=== PATIENT | female | born 1970 | race African-American/Black ===

== ENCOUNTER 2017-02-03 08:13 | Inpatient (IN) | payer SELFPAY ==
[2017-02-03 08:38] LABS: #Basophils 0.1 thou/uL (0.0-0.2); #Lymphocytes 1.8 thou/uL (1.20-3.40); #Monocytes 0.5 thou/uL (0.11-0.59); #Neutrophils 2.3 thou/uL (1.40-6.50); %Basophils 1.3 % (0.0-1.0); %Eosinophils 0.9 % (0.0-10.0); %Lymphocytes 37.8 % (21.0-51.0); %Monocytes 10.4 % (0.0-10.0); Hematocrit 40.5 % (36.0-47.0); Mean Platelet Volume 6.5 fL (7.4-10.4); Red Blood Cell (RBC) Count 4.07 mill/uL (4.20-5.40); White Blood Cell (WBC) Count 4.6 thou/uL (4.8-10.8)
[2017-02-03 09:01] LABS: ALT (SGPT) 12 U/L (8-55); AST (SGOT) 14 U/L (5-34); Alkaline Phosphatase 56 U/L (40-150); Anion Gap 14 mmol/L (10-20); BUN (Urea Nitrogen) 7 mg/dL (7.0-18.7); Bilirubin, Total 0.4 mg/dL (0.2-1.2); CK (CPK) 204 U/L (29-168); Calc. Creatinine Clearance 0 mL/min (70-130); Calcium 9.3 mg/dL (7.8-10.44); Carbon Dioxide 23 mmol/L (22-29); Chloride 105 mmol/L (98-107); Estimated GFR-MDRD Greater than 90; Globulin 3.3 g/dL (2.4-3.5); Lipase 5 U/L (8-78); Protein, Total 8.1 g/dL (6.0-8.3)
[2017-02-03] MEDS ORDERED: Fentanyl 100 MCG/2 ML VIAL ONE ×2 (09:22→11:23)
[2017-02-03] MEDS ORDERED: Ketorolac Tromethamine 30 MG/ML VIAL ONE (10:20)
[2017-02-03] MEDS ORDERED: Dexamethasone 10 MG/ML VIAL ONE (10:44)
--- NOTE | 2017-02-03 10:53 | CT ---
CT BRAIN: Date: 02/03/17 HISTORY: Possible stroke. TECHNIQUE: Noncontrast enhanced CT images of brain obtained from the base of the skull to the vertex. Brain and bone windows are obtained. FINDINGS: Comparison made to previous exam from 09/24/15. Noncontrast enhanced CT images of the brain demonstrate the brain to be unremarkable. No acute intrac ranial abnormality seen. There appears to have been an old left basal ganglion area of mild hypodensi ty compatible with likely area of old left basal ganglion stroke and subinsular stroke. These are, ho wever, old. No acute intracranial abnormality seen. No evidence of hemorrhages seen. 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 No acute intracranial abnor malities seen. Findings called to Dr. Valera at 0848 hours on 02/03/17. CODE CR. POS: [facility]
[2017-02-03] MEDS ORDERED: Acetaminophen 650 MG Suppository PR PRN (10:59)
[2017-02-03] MEDS ORDERED: Bisacodyl 5 MG TAB PO PRN (10:59)
[2017-02-03] MEDS ORDERED: Nitroglycerin 0.4 MG TAB (25 Tab Bottle) PO PRN (10:59)
--- NOTE | 2017-02-03 10:59 | RAD ---
AP VIEW CHEST: Date: 02/03/17 HISTORY: Chest pain. FINDINGS: Comparison made to previous exam from 12/18/16. AP view chest demonstrates the lungs to be well aerated. No evidence of active intrathoracic disease seen. No evidence of effusions, pneumonia, or pneumothorax seen. IMPRESSION: Unremarkable AP view chest. POS: [facility]
[2017-02-03] MEDS ORDERED: Metoclopramide HCl 10 MG/2 ML VIAL ONE (11:09)
[2017-02-03] MEDS ORDERED: Topiramate 100 MG TAB PO SCH (11:15)
[2017-02-03] MEDS ORDERED: Nitroglycerin 2% Ointment 1 INCH/1 GM Packet ONE (11:19)
[2017-02-03] MEDS ORDERED: hydrALAZINE 20 MG/ML VIAL SLOW IVP PRN (11:25)
[2017-02-03 11:31] LABS: Acetaminophen Less than 6.0 mcg/mL (10.0-30.0); Salicylate Less than 8.0 mg/dL (15.0-30.0)
--- NOTE | 2017-02-03 11:53 | CT ---
CT AORTIC DISSECTION: Date: 02/03/17 HISTORY: 46-year-old with history of chest pain for 30 minutes. TECHNIQUE: Contrast enhanced CTA of the chest is performed. 2D and 3D reconstructed images performed on an [employer] 3D workstation. FINDINGS: CTA chest and abdomen demonstrates the thoracic aorta to be unremarkable. No evidence of mediastinal masses or lesions seen. The pulmonary arteries are unremarkable. No definite evidence of pulmonary parenchymal masses or lesions seen. No evidence of abdominal aortic aneurysms or dissections seen. The SMA, celiac, ZENON, and renal arteri es are all patent. The liver, spleen, gallbladder, pancreas, adrenal glands, and kidneys are unremarkable. IMPRESSION: Unremarkable CTA aorta. POS: [facility]
--- NOTE | 2017-02-03 11:59 | HP ---
PRIMARY CARE PROVIDER: Christopher in [facility] CHIEF COMPLAINT: Headache, chest pain. HISTORY OF PRESENT ILLNESS: Ms. Rodriguez is a pleasant 46-year-old lady who was seen at [facility] on 02/03/2017. She reports that she woke up today morning with right-sided weakness, headache and left-sided chest p ain. She reports that the headache and is worse than the headache she has had in the past. In the p ast, she was diagnosed with migraine headaches. She reports that today's headache is bifrontal, dull , 10/10 at its worst, nonradiating. This was accompanied by right upper and lower extremity weakness . She also had left-sided chest pain, sharp, radiating to the neck, 10/10 at its worst. No known ag gravating or relieving factors, not accompanied by shortness of breath. REVIEW OF SYSTEMS: She denies any cough, fevers or chills. She denies any abdominal pain. The following complete review of systems was negative, unless otherwise mentioned in the HPI or below : Constitutional: Weight loss or gain, sense of well-being, ability to conduct usual activities, ex ercise tolerance. Skin/Breast: Rash, itching, changes in hair growth or loss, nail changes, breast lumps, tenderness, swelling, nipple discharge. Eyes: Vision, double vision, tearing, blind spots, p ain. ENT/Mouth: Headaches (location, time of onset, duration, precipitating factors), vertigo, ligh theadedness, injury. Vision, double vision, tearing, blind spots, pain, nose bleeding, colds, obstru ction, discharge, dental difficulties, gingival bleeding, dentures, neck stiffness, pain, tenderness, masses in thyroid or other areas Cardiovascular: Precordial pain, substernal distress, palpitations , syncope, dyspnea on exertion, orthopnea, nocturnal paroxysmal dyspnea, edema, cyanosis, hypertensio n, heart murmurs, varicosities, phlebitis, claudication. Respiratory: Pain, shortness of breath, wh eezing, stridor, cough, hemoptysis, fever or night sweats. Gastrointestinal: Poor appetite, dysphag ia, indigestion, abdominal pain, heartburn, eructation, nausea, vomiting, hematemesis, jaundice, cons tipation, or diarrhea, abnormal stools (allan-colored, tarry, bloody, greasy, foul smelling), flatulen ce, hemorrhoids, recent changes in bowel habits. Genitourinary: Urgency, frequency, dysuria, noctur ia, hematuria, polyuria, oliguria, unusual (or change in) color of urine, stones, hesitancy, change i n size of stream, dribbling, acute retention or incontinence, libido, potency. Musculoskeletal: Collette n, swelling, redness or heat of muscles or joints, limitation, of motion, muscular weakness, atrophy, cramps. Neurologic/Psychiatric: Convulsions, paralyses, tremor, incoordination, paresthesias, diff iculties with memory of speech, sensory or motor disturbances, or muscular coordination (ataxia, trem or), emotional problems, anxiety, depression, previous psychiatric care, unusual perceptions, halluci nations. Allergy/Immunologic: Skin rash, anemia, bleeding tendency, polydipsia, polyuria, intoleran ce to heat or cold. PAST MEDICAL HISTORY: Significant for hypertension, diverticulitis, TIA x2, bulging neck disk and me ningioma. PAST SURGICAL HISTORY: Significant for colon resection and diverticulitis. SOCIAL HISTORY: The patient reports that she smokes 2-3 cigarettes a day. She denies alcohol use or recreational drug use. FAMILY HISTORY: He denies any family history of migraine headaches. ALLERGIES: No known drug allergies. CURRENT MEDICATIONS: Include Lisinopril 5 mg daily. PHYSICAL EXAMINATION: GENERAL: Ms. Rodriguez is awake and alert, not in acute distress. VITAL SIGNS: Blood pressure is 129/88, pulse is 77. She is breathing at rate of 16, and saturating 99% on room air. She is afebrile. EYES: No scleral icterus. No conjunctival pallor. ENT: Moist mucosal membranes, no oropharyngeal erythema or exudates. NECK: Supple, nontender, normal range of movement, trachea is midline. RESPIRATORY: Accessory muscles of breathing are not active. Chest wall movements are symmetric bila terally. LUNGS: Clear to auscultation without wheeze, rhonchi or crepitations. CARDIOVASCULAR: S1 and S2 are heard, regular. LUNGS: Peripheral pulses palpable. No carotid bruit, no pericardial rub. ABDOMEN: Soft, nontender, bowel sounds heard, no hepatomegaly, no splenomegaly. NEUROLOGIC: Cranial nerves II-XII are intact. Power is 4/5 in the right upper extremity and 3/5 in the right lower extremity. Power is 5/5 in the left upper and lower extremities. Deep tendon reflex es are 2+. Plantar reflexes are downgoing bilaterally. MUSCULOSKELETAL: Power in the 4 extremities as described above. There is no reproducible tenderness over the chest wall. SKIN: No rashes or subcutaneous nodules. LYMPHATIC: No cervical lymphadenopathy. PSYCHIATRIC: The patient appears anxious, oriented to person, place, and time. LABORATORY DATA: Ms. Rodriguez's labs and investigations were reviewed. I reviewed her electrocardiogra m, which shows normal sinus rhythm, no ST changes to suggest an acute coronary syndrome. I also revi ewed her chest x-ray, which does not show any pulmonary infiltrates. She also had a noncontrast CT s can of the brain as well as a CT dissection protocol. The emergency room physician informs me that t hese are normal. Laboratory investigation shows leukopenia with 4600 white cells, normal hemoglobin, normal platelet count, unremarkable. Comprehensive metabolic profile, mildly elevated CK of 204, no rmal troponin I and negative serum test. ASSESSMENT AND PLAN: Ms. Rodriguez is a pleasant 46-year-old lady who was seen at [facility] on 02/03/2017. Her problem list includes: 1. Chest pain: The etiology is unclear. She does not have any EKG changes and her first troponin i s normal. However, she does have ongoing severe chest pain. The differential diagnoses includes uns table angina and esophageal spasm. I have advised the emergency room physician to provide her with s ome nitrates to see the effect. I will also start her on Lovenox and aspirin. I will also start her on Cardizem for possible esophageal spasm. Cardiology Service will be consulted. A 2D echocardiogr am is also being ordered. 2. Headache: She has a history of migraines. I will provide her with Topamax. 3. Right-sided weakness. This is improving. Most likely migraine variant. However, will check MRI of the brain to rule out an acute stroke. 4. Hypertension: Monitor vital signs, titrate antihypertensives as needed. 5. Rhabdomyolysis: Mild, we will provide intravenous hydration and recheck. 6. Leukopenia: Recheck white count. I note that patient had a normal white count in 12/2016. Many thanks for allowing me to participate in your patient's care. Please feel free to contact me wi th any questions or concerns. LEVEL OF RISK: High. LEVEL OF COMPLEXITY: High.
[2017-02-03] MEDS ORDERED: Diltiazem HCl SR 60 mg Capsule PO SCH (12:00)
[2017-02-03] MEDS ORDERED: Enoxaparin Sodium 80 MG/0.8 ML SYRINGE SC SCH (12:00)
[2017-02-03] MEDS ORDERED: ISOVUE-370 76%-LOCM 1 ML ONE (13:47)
[2017-02-03 15:12] VITALS: BMI 32.9
[2017-02-03] MEDS: Sodium Chloride 0.9% 1,000 ML IV SCH (16:12)
[2017-02-03] MEDS: Nicotine 14 MG PATCH TD SCH (16:13)
[2017-02-03] MEDS: Morphine 4 MG/ML VIAL SLOW IVP PRN (16:19)
[2017-02-03] MEDS: Topiramate 25 MG TAB PO SCH (21:34)
[2017-02-03] MEDS: Diltiazem HCl SR 60 mg Capsule PO SCH (21:34)
[2017-02-03] MEDS: Enoxaparin Sodium 80 MG/0.8 ML SYRINGE SC SCH (21:35)
[2017-02-04] MEDS: Sodium Chloride 0.9% 1,000 ML IV SCH (03:04)
[2017-02-04 05:36] LABS: #Lymphocytes 1.4 thou/uL (1.20-3.40); #Monocytes 0.6 thou/uL (0.11-0.59); #Neutrophils 5.8 thou/uL (1.40-6.50); %Eosinophils 0.1 % (0.0-10.0); %Lymphocytes 17.8 % (21.0-51.0); %Monocytes 7.7 % (0.0-10.0); Hematocrit 35.4 % (36.0-47.0); Mean Platelet Volume 7.3 fL (7.4-10.4); Red Blood Cell (RBC) Count 3.57 mill/uL (4.20-5.40); White Blood Cell (WBC) Count 7.8 thou/uL (4.8-10.8)
[2017-02-04 05:52] LABS: Anion Gap 10 mmol/L (10-20); BUN (Urea Nitrogen) 11 mg/dL (7.0-18.7); CK (CPK) 137 U/L (29-168); Calc. Creatinine Clearance 126 mL/min (70-130); Calcium 8.6 mg/dL (7.8-10.44); Carbon Dioxide 23 mmol/L (22-29); Chloride 109 mmol/L (98-107); Cholesterol 100 mg/dl (< 200 Desired); Estimated GFR-MDRD Greater than 90; LDL Cholesterol, Calculated 24 mg/dL
[2017-02-04] MEDS: Aspirin 325 MG TAB PO SCH (08:49)
[2017-02-04] MEDS: Diltiazem HCl SR 60 mg Capsule PO SCH ×2 (08:49→20:12)
[2017-02-04] MEDS: Topiramate 25 MG TAB PO SCH ×2 (08:49→20:12)
[2017-02-04] MEDS: Enoxaparin Sodium 80 MG/0.8 ML SYRINGE SC SCH (08:49)
[2017-02-04] MEDS ORDERED: Enoxaparin Sodium 40 MG/0.4 ML SYRINGE SC SCH (09:00)
[2017-02-04] MEDS: Morphine 4 MG/ML VIAL SLOW IVP PRN (11:38)
[2017-02-04] MEDS: Nicotine 14 MG PATCH TD SCH (11:38)
--- NOTE | 2017-02-04 11:57 | PDOC.PN ---
- Subjective Encounter Start Date: 02/04/17 Encounter Start Time: 11:55 Subjective: sharp left chest pain, lasts seconds, comes and goes. weak in R leg - Objective MAR Reviewed: Yes Vital Signs & Weight: Vital Signs (12 hours) Temp Pulse Resp BP BP BP Pulse Ox 02/04/17 11:30 98.6 F 82 18 138/92 H 99 02/04/17 07:45 99.4 F 88 16 125/73 98 02/04/17 03:54 98.2 F 84 18 116/60 98 02/04/17 00:00 98.6 F 80 18 126/76 98 Weight Weight 183 lb 3.2 oz I&O: 02/03/17 02/04/17 02/05/17 06:59 06:59 06:59 Intake Total 2500 Output Total 1170 Balance 1330 Result Diagrams: 02/04/17 05:05 02/04/17 05:05 Phys Exam - Physical Examination Constitutional: NAD Neck: no JVD Respiratory: clear to auscultation bilateral Cardiovascular: RRR, no significant murmur Gastrointestinal: soft, non-tender, positive bowel sounds Musculoskeletal: no edema gives way on strength testing R leg, no focal reflex change Dx/Plan (1) Weakness of right lower extremity Code(s): R29.898 - OTH SYMPTOMS AND SIGNS INVOLVING THE MUSCULOSKELETAL SYSTEM Status: Acute (2) Chest pain Code(s): R07.9 - CHEST PAIN, UNSPECIFIED Status: Acute Qualifiers: Chest pain type: pleurodynia Qualified Code(s): R07.81 - Pleurodynia (3) Headache Code(s): R51 - HEADACHE Status: Acute Qualifiers: Headache type: tension-type (4) Tobacco abuse Code(s): Z72.0 - TOBACCO USE Status: Chronic - Plan gives way on strength testing, MRI pending -: noncardiac chest pain * .
[2017-02-04 12:58] LABS: Troponin I 0.019 ng/mL (< 0.028)
--- NOTE | 2017-02-04 19:32 | CON ---
DATE OF CONSULTATION: 02/04/2017 HISTORY OF PRESENT ILLNESS: Dorothy Rodriguez is a 46-year-old black female who was admitted with right leg weakness and chest discomfort. The discomfort is located in the mid portion of her chest. She developed a very severe sharp pain , which is definitely pleuritic in nature, last approximately 5 seconds and resolved. This then will occur 4 or 5 hours later. Even now if she takes a deep breath in, she will have the discomfort. She denies any diaphoresis, nausea, vomiting or shortness of breath associated with this. PAST MEDICAL HISTORY: Hypertension, diverticulitis, history of TIAs, cervical herniated disk and meningioma. OPERATIONS: Colon resection and diverticulitis. MEDICATIONS: Lisinopril, unknown dose daily. ALLERGIES: None. SOCIAL HISTORY: She smokes 2-3 cigarettes per day. She does not use alcohol. FAMILY HISTORY: Negative for coronary artery disease. REVIEW OF SYSTEMS: Twelve point review of systems otherwise is unremarkable. PHYSICAL EXAMINATION: VITAL SIGNS: 138/92, pulse of 82. HEENT: PERRL. NECK: Supple. CHEST: Clear. CARDIAC: S1 and S2 are normal, without any S3, S4, murmurs or rubs. Carotid upstrokes normal, without bruits. ABDOMEN: Normal bowel sounds, without tenderness or organomegaly. EXTREMITIES: Revealed no clubbing, cyanosis or edema. NEUROLOGIC: Shows mild right leg weakness. SKIN: Warm and dry. Musculoskeletal: No palpable chest wall tenderness. LABORATORY: EKG reveals normal sinus rhythm with septal infarction. Hemoglobin 11.6, hematocrit 35.4, white count 7800, platelets 251,000. Sodium 138, potassium 3.9, chloride 109, carbon dioxide 23, BUN 11, creatinine 0.75, cholesterol 100, triglycerides 21, HDL 72, LDL 24. Cardiac enzymes are negative x2. CT aortic dissection revealed no evidence of aortic aneurysm or dissection. Brain CT revealed an old left basal ganglia and subinsular cortex injury. Echocardiogram revealed ejection fraction of 50%-55% with moderate mitral regurgitation, mild to moderate tricuspid regurgitation, and mild pulmonic regurgitation. IMPRESSION: 1. Atypical chest discomfort, which historically sounds more chest wall in nature. 2. Left basal ganglia and cerebrovascular accident with right leg weakness. 3. Hypertension. 4. Obesity. 5. Smoker. PLAN: Patient does have findings of a septal infarction on her EKG. She will undergo adenosine Cardiolite testing for further evaluation. MTDD
[2017-02-05] MEDS: Acetaminophen 325 MG TAB PO PRN ×2 (05:43→13:37)
[2017-02-05] MEDS ORDERED: Lisinopril 5 MG TAB PO SCH (09:00)
--- NOTE | 2017-02-05 11:37 | NM ---
CARDIAC SPECT WITH EJECTION FRACTION AND WALL MOTION: Date: 02/05/17 HISTORY: 46-year-old female with chest pain. TECHNIQUE: Adenosine sestamibi study is performed. Patient was injected with 30.1 mCi technetium-99m sestamibi i ntravenously for stress images and patient was injected with 9.0 mCi of technetium-99m sestamibi intr avenously for resting images. FINDINGS: Multiple SPECT images in the short axis, vertical long axis, and horizontal long axis demonstrate no scan evidence for infarct or ischemia. TID: 1.08 LHR: 0.32 EDV: 85 mL EF: 60% MYOCARDIAL PERFUSION WALL MOTION: Wall motion is normal. IMPRESSION: Normal cardiac SPECT with ejection fraction and wall motion. POS: [facility]
[2017-02-05 12:09] LABS: Hematocrit 38.7 % (36.0-47.0); Mean Platelet Volume 6.8 fL (7.4-10.4); Red Blood Cell (RBC) Count 3.88 mill/uL (4.20-5.40); White Blood Cell (WBC) Count 5.3 thou/uL (4.8-10.8)
[2017-02-05] MEDS: Aspirin 325 MG TAB PO SCH (12:17)
[2017-02-05] MEDS: Diltiazem HCl SR 60 mg Capsule PO SCH (12:18)
[2017-02-05] MEDS: Nicotine 14 MG PATCH TD SCH (12:19)
[2017-02-05 12:25] LABS: Neutrophil 38 % (42-75)
[2017-02-05 12:29] LABS: Anion Gap 9 mmol/L (10-20); BUN (Urea Nitrogen) 9 mg/dL (7.0-18.7); Calc. Creatinine Clearance 113 mL/min (70-130); Calcium 8.9 mg/dL (7.8-10.44); Carbon Dioxide 26 mmol/L (22-29); Chloride 107 mmol/L (98-107); Estimated GFR-MDRD 89
[2017-02-05] MEDS ORDERED: ADENOSINE 60 MG/20 ML VIAL ONE (13:30)
[2017-02-05] MEDS: Topiramate 25 MG TAB PO SCH (13:34)
--- NOTE | 2017-02-05 15:36 | PDOC.EVN ---
Event Note - Event Note Event Note: patient requests DNR status, family at bedside in agreement
[2017-02-05 16:22] VITALS: BP 119/73; TEMP 97.7
--- NOTE | 2017-02-05 19:42 | DIS ---
PRIMARY CARE PROVIDER: Robin White, Dr. Barrios. DATE OF ADMISSION: 02/03/2017 DATE OF DISCHARGE: 02/05/2017 DISCHARGE DISPOSITION: Home. FINAL DIAGNOSES: Chest pain, noncardiac; headache; weakness in right leg, factitious; hypertension. DISCHARGE MEDICATIONS: Lisinopril 5 mg a day. ALLERGIES: None. PENDING AT THE TIME OF DISCHARGE: Nothing. CODE STATUS: FULL. HOSPITAL COURSE: The patient presented with left sharp chest pain, complaint of weakness in the righ t leg. Brain CT was unremarkable. CT dissection of the chest is unremarkable. Stress test nuclear medicine unremarkable. LABORATORY DATA: White count 4.6, hemoglobin 10.3, platelet count 298,000. Serial cardiac enzymes n ormal. Comp metabolic profile normal. Toxicology, blood alcohol 24, otherwise unremarkable. On str ength testing, the patient gave way on strength testing of her leg for thoroughness. MRI was ordered which she refused. She was seen in consultation by Dr. Kalin Morales. Nuclear medicine cardiac s tress test was done which reveals no evidence of ischemia. These findings have been related to her. She is being discharged home with follow up with Dr. Uribe.
== END 2017-02-05 19:28 | disposition home or self-care (01) | DRG 313 ==
LOC: ERS 08:13 → ERHOLD 10:39 → 2NO 14:46
PROVIDERS: ADMIT Internal Medicine; ATTEND Internal Medicine
PROC: 4A02XM4 Measurement of Cardiac Total Activity, External Approach (ICD-10-PCS; principal; 2017-02-05)
DX: R07.89 Other chest pain (principal); M62.82 Rhabdomyolysis; I10 Essential (primary) hypertension; F17.210 Nicotine dependence, cigarettes, uncomplicated; M62.81 Muscle weakness (generalized); D72.819 Decreased white blood cell count, unspecified; G44.209 Tension-type headache, unspecified, not intractable; E66.9 Obesity, unspecified; Z68.33 Body mass index [BMI] 33.0-33.9, adult; Z90.49 Acquired absence of other specified parts of digestive tract; Z87.19 Personal history of other diseases of the digestive system; Z86.73 Personal history of transient ischemic attack (TIA), and cerebral infarction without residual deficits
CPT/HCPCS: 36415; 36416; 70450; 71010; 71275; 78452; 80048; 80053; 80061; 80307; 82550; 82553; 83690; 84484; 84703; 85025; 93005; 93017; 93306; 94760; 96361; 96374; 96375; 96376; A9500; J0153; J1100; J1650; J1885; J2270; J2765; J3010

== ENCOUNTER 2017-02-22 08:17 | Inpatient (IN) | payer SELFPAY ==
--- NOTE | 2017-02-22 08:52 | RAD ---
SINGLE VIEW OF CHEST: Date: 02/22/17 COMPARISON: 02/03/17. HISTORY: Cough and right arm pain. Chest pain. FINDINGS: Single view of the chest shows a normal sized cardiomediastinal silhouette. There is no evidence of c onsolidation, mass, or pleural effusion. The bones are unremarkable. IMPRESSION: No evidence of acute cardiopulmonary disease. POS: [facility]
[2017-02-22 08:55] LABS: #Eosinphils 0.1 thou/uL (0.0-0.7); #Lymphocytes 2.4 thou/uL (1.20-3.40); #Monocytes 0.5 thou/uL (0.11-0.59); #Neutrophils 3.4 thou/uL (1.40-6.50); %Basophils 0.6 % (0.0-1.0); %Eosinophils 1.2 % (0.0-10.0); %Lymphocytes 38.2 % (21.0-51.0); %Monocytes 7.3 % (0.0-10.0); %Neutrophils 52.6 % (42.0-75.0); Mean Corpuscular HGB CONC 33.4 g/dL (32.0-36.0); Mean Corpuscular Hemoglobin 32.8 pg (27.0-31.0); Mean Corpuscular Volume 98.2 fl (81.0-99.0); Mean Platelet Volume 6.7 fL (7.4-10.4); Platelet Count 294 thou/uL (130-400); RBC Distribution Width 12.8 % (11.5-14.5); Red Blood Cell (RBC) Count 3.66 mill/uL (4.20-5.40); White Blood Cell (WBC) Count 6.4 thou/uL (4.8-10.8)
[2017-02-22 09:05] LABS: PTT 29.8 SEC (22.9-36.1); Prothrombin Time 13.8 SEC (12.0-14.7)
--- NOTE | 2017-02-22 09:17 | CT ---
CT HEAD WITHOUT CONTRAST: Date: 02/22/17 COMPARISON: 02/03/17. HISTORY: Chest pain with radiation to the right arm, altered mental status, right arm tingling, and right-side d weakness. TECHNIQUE: Serial axial CT imaging at 5 mm intervals from vertex through skull base without contrast. FINDINGS: The imaged paranasal sinuses/mastoid air cells are well aerated. There is no displaced calvarial frac ture. There is no intracranial hemorrhage, midline shift, mass effect, or ventricular enlargement. IMPRESSION: No intracranial hemorrhage. If there is clinical concern for acute infarction, brain MRI advised. Art erial structures could be better assessed via CT angiogram if clinically indicated. Results called to Miguelito Kuhn at 0900 hours on 02/22/17. CODE CR. POS: [facility]
[2017-02-22 09:26] LABS: ALT (SGPT) 14 U/L (8-55); AST (SGOT) 13 U/L (5-34); Albumin 4.3 g/dL (3.5-5.0); Alkaline Phosphatase 52 U/L (40-150); Anion Gap 14 mmol/L (10-20); BUN (Urea Nitrogen) 6 mg/dL (7.0-18.7); Bilirubin, Total 0.4 mg/dL (0.2-1.2); CK (CPK) 223 U/L (29-168); Calc. Creatinine Clearance 0 mL/min (70-130); Calcium 9.1 mg/dL (7.8-10.44); Carbon Dioxide 23 mmol/L (22-29); Chloride 106 mmol/L (98-107); Estimated GFR-MDRD Greater than 90; Glucose 75 mg/dL (70-105); Lipase Less than 4 U/L (8-78); Potassium 3.8 mmol/L (3.5-5.1); Protein, Total 7.3 g/dL (6.0-8.3); Sodium 139 mmol/L (136-145)
[2017-02-22 09:30] LABS: CKMB 2.5 ng/mL (0-6.6); Troponin I Less than 0.010 ng/mL (< 0.028)
[2017-02-22] MEDS ORDERED: Aspirin 325 MG TAB ONE (09:30)
--- NOTE | 2017-02-22 10:30 | CT ---
CT ANGIOGRAM OF THE HEAD CT ANGIOGRAM OF THE NECK CT PERFUSION OF THE HEAD: DATE: 02/22/17. COMPARISON: 05/01/15. HISTORY: Wakeup stroke. TECHNIQUE: Serial axial CT imaging at 1.25 mm intervals obtained from the lung apices through the vertex with IV contrast using a CT angiogram protocol. Coronal and sagittal 3D reformatted imaging obtained. CT perfusion maps of the brain were obtained as well. FINDINGS: CT ANGIOGRAM NECK: The imaged lung apices are unremarkable. The retroantral and the parapharyngeal fat appears clear bilaterally. The parotid and submandibular glands appear within normal limits bilaterally. There is a soft tissue density in the superior mediastinum/prevascular space on axial image 36 measur ing 1 cm suggesting a new mildly enlarged lymph node. Imaged lung apices are unremarkable. No lymphadenopathy is seen in the neck. The thyroid gland, cricoid cartilage, thyroid cartilage, hyoid bone, level of the glottis, preepiglot tic fat, and level of the tonsillar pillars appear grossly unremarkable. Origin of the innominate artery, left common carotid artery, left subclavian artery, bilateral verteb ral arteries, right subclavian artery, and right common carotid artery appear unremarkable. The proximal aspect of the left internal carotid artery is tortuous. There is no hemodynamically sig nificant stenosis on the basis of NASCET criteria involving the internal or common carotid artery on either side. Vertebral arteries are patent and demonstrate normal course and caliber bilaterally. The osseous structures of the neck demonstrate no worrisome lytic or blastic lesions. CT ANGIOGRAM OF THE HEAD: The distal vertebral arteries are patent. The basilar artery and its branches are patent. Patent bi lateral posterior communicating arteries are present. The bilateral posterior cerebral arteries appear unremarkable. There is no hemodynamically significa nt stenosis, vascular occlusion, or saccular aneurysm involving the posterior circulation. The extracranial ICA is within normal limits. The region of the anterior communicating artery and th e distal CAROL branches appear unremarkable. The ICA bifurcation appears within normal limits. The M1 segment appears patent bilaterally. The MCA bifurcation and the distal MCA branches are grossly unr emarkable. No saccular aneurysm, high-grade stenosis, or central vascular occlusion is seen. Osseous structures are unremarkable. CT PERFUSION MAPS: Provided CT perfusion maps include cerebral blood volume, cerebral blood flow, and mean transit time. In the anterior temporal lobe on the left/middle cranial fossa, there is an area of decreased blood flow and blood volume. This is probably artifactual in nature. Small completed infarction in the t emporal lobe on the left cannot be fully excluded. There is no evidence for ischemia. Incidental note is made of an enhancing lesion near the vertex on the left in an extraaxial location, presumably on the basis of meningioma measuring in the 1.8 x 1.9 cm range. IMPRESSION: 1. No central arterial thrombus noted on CT angiogram head. 2. CT angiogram of the neck demonstrates no hemodynamically significant stenosis within the carotid or vertebral system. 3. CT perfusion maps demonstrate a focal area of decreased blood flow and blood volume within the in ferior left temporal lobe which could represent artifact, encephalomalacia, or completed infarction. There is no evidence for ischemia. 4. Incidental note made of a new mildly enlarged superior mediastinal lymph node for which followup CT examination of the chest with IV contrast is advised. 5. Incidentally noted hyperdense extraaxial presumably enhancing lesion near the vertex on the left, most consistent with meningioma. Amarilis Jolley made aware at 9:30 a.m. 02/22/17. CODE CR POS: [facility]
[2017-02-22] MEDS ORDERED: Morphine 4 MG/ML Carpuject ONE (10:54)
[2017-02-22 11:37] LABS: Bilirubin Negative (Negative); Blood, Urine Negative (Negative); Clarity CLEAR (Clear); Glucose, Urine (Dipstick) Negative (Negative); Leukocyte Negative (Negative); Nitrite Negative (Negative); Protein, Urine (Dipstick) Negative (Neg-Trace); Urobilinogen 0.2 mg/dL (0.2-1.0); pH, Urine 7.5 (5.0-9.0)
[2017-02-22 11:40] LABS: Specific Gravity, Urine 1.056 (1.002-1.036)
[2017-02-22 12:03] LABS: Troponin I Less than 0.010 ng/mL (< 0.028)
[2017-02-22] MEDS ORDERED: ISOVUE-370 76%-LOCM 1 ML ONE (12:15)
[2017-02-22] MEDS ORDERED: Ondansetron HCl/PF 4 MG/2 ML Vial IVP PRN (13:37)
[2017-02-22] MEDS ORDERED: Ondansetron ODT 4 MG TAB SL PRN (13:37)
[2017-02-22] MEDS ORDERED: Morphine 4 MG/ML Carpuject SLOW IVP PRN ×4 (13:38→15:13)
[2017-02-22] MEDS: Sodium Chloride 0.9% 1,000 ML IV SCH ×2 (14:01→21:31)
[2017-02-22 14:09] VITALS: BMI 31.4
[2017-02-22] MEDS ORDERED: Senokot 8.6 MG TAB PO PRN (14:48)
[2017-02-22] MEDS ORDERED: Bisacodyl 5 MG TAB PO PRN (14:48)
[2017-02-22] MEDS ORDERED: Lorazepam 2 MG/ML VIAL SLOW IVP PRN (14:54)
[2017-02-22 15:19] LABS: Troponin I Less than 0.010 ng/mL (< 0.028)
--- NOTE | 2017-02-22 15:30 | HP ---
DATE OF ADMISSION: 02/22/2017 CHIEF COMPLAINT: Chest pain. HISTORY OF PRESENT ILLNESS: This is a 47-year-old young -Citizen Of The [place] female with a known history of meningioma and has recurrent admissions for similar right-sided pains with weakness of the right extremity. The patient was in her usual state of health. She woke up this morning with sudden onset of chest pain on the left precordium radiating to the right side of the neck associated with weaknes s of the right lower extremity. The patient had no numbness, but complete weakness of the right side and was persistent even while e was in the ER. The patient had a CT of the head that was negative for any intracranial hemorrhage. Also had a CTA, which did not show any evidence of intracranial hemorrhage or any cerebral artery s tenosis, but it did show a meningioma of 3.1-1.9 cm size and she also had a nonspecific lesion in the mediastinum. The patient was seen on the floor. She was alert and oriented. Did not appear to be in acute distre ss. She was recently admitted to the hospital and had cardiac stress test which was unremarkable and patient was discharged home. According to her, she was never seen by a neurologist. PAST MEDICAL HISTORY: 1. Hypertension. 2. History of diverticulitis. 3. History of TIA. 4. History of bulging neck and bulging disk. PAST SURGICAL HISTORY: History of colon resection and history of diverticulitis. SOCIAL HISTORY: The patient is a nonsmoker. Smokes 2-3 cigarettes a day. There is no history of al cohol, no history of illicit drug use. FAMILY HISTORY: Denies any family history of migraine headaches. ALLERGIES: No known drug allergies. HOME MEDICATION: Patient is on lisinopril 5 mg p.o. daily. REVIEW OF SYSTEMS: All 12 systems are reviewed with the patient thoroughly and found to be negative at this time. The following complete review of systems was negative, unless otherwise mentioned in t he HPI or below: Constitutional: Weight loss or gain, sense of well-being, ability to conduct usual activities, exerc ise tolerance. Skin/Breast: Rash, itching, changes in hair growth or loss, nail changes, breast lumps, tenderness, swelling, nipple discharge. Eyes: Vision, double vision, tearing, blind spots, pain. ENT/Mouth: Headaches (location, time of onset, duration, precipitating factors), vertigo, lightheade dness, injury. Vision, double vision, tearing, blind spots, pain, nose bleeding, colds, obstruction, discharge, dental difficulties, gingival bleeding, dentures, neck stiffness, pain, tenderness, masses in thyroid or other areas Cardiovascular: Precordial pain, substernal distress, palpitations, syncope, dyspnea on exertion, or thopnea, nocturnal paroxysmal dyspnea, edema, cyanosis, hypertension, heart murmurs, varicosities, ph lebitis, claudication. Respiratory: Pain, shortness of breath, wheezing, stridor, cough, hemoptysis, fever or night sweats Gastrointestinal: Poor appetite, dysphagia, indigestion, abdominal pain, heartburn, eructation, naus ea, vomiting, hematemesis, jaundice, constipation, or diarrhea, abnormal stools (allan-colored, tarry, bloody, greasy, foul smelling), flatulence, hemorrhoids, recent changes in bowel habits. Genitourinary: Urgency, frequency, dysuria, nocturia, hematuria, polyuria, oliguria, unusual (or orly nge in) color of urine, stones, hesitancy, change in size of stream, dribbling, acute retention or in continence, libido, potency. Musculoskeletal: Pain, swelling, redness or heat of muscles or joints, limitation, of motion, muscul ar weakness, atrophy, cramps. Neurologic/Psychiatric: Convulsions, paralyses, tremor, incoordination, paraesthesias, difficulties with memory of speech, sensory or motor disturbances, or muscular coordination (ataxia, tremor), emot ional problems, anxiety, depression, previous psychiatric care, unusual perceptions, hallucinations. Allergy/Immunologic: Skin rash, anemia, bleeding tendency, polydipsia, polyuria, intolerance to heat or cold. PHYSICAL EXAMINATION: VITAL SIGNS: Blood pressures are 130/81, heart rate is 91, respirations 20, saturation 98%. GENERAL: The patient is moderately built and moderately nourished, does not appears to be in acute d istress at this time. CARDIOVASCULAR: S1, S2 normal. No murmurs, rubs or gallops. LUNGS: Bilateral air entry was equal. No wheezing, no crackles. ABDOMEN: Soft, nontender, no guarding, no rebound tenderness. Bowel sounds normal. MUSCULOSKELETAL: No calf tenderness. No pedal edema, no joint tenderness, no joint swelling. SKIN: No cyanosis, no erythema, no rash, no pallor. STOPPER GRINDER: Examination was done, II to XII cranial nerves were examined and was negative. Patient had no s ensory or motor abnormalities noted. No gross neurologic deficits. Gait was not tested as the patie nt was in the bed. PSYCHIATRIC: No signs of suicidal ideation, no signs of asael. NECK: No thyromegaly. No lymphadenopathy was noted. LABORATORY DATA: WBC 6.1, hemoglobin 12.0, hematocrit is 35.9, platelets are 294. Sodium 139, potas sium 3.8, chloride 106, bicarbonate 23, BUN 6, creatinine is 0.66. UA was negative for any urinary tract infection. ASSESSMENT AND PLAN: 1. Transient ischemic attack. 2. Acute chest pain. 3. History of meningioma. 4. History of cervical neck disk herniation. 5. History of hypertension. PLAN: 1. Plan is to closely monitor this patient with neuro checks every 4 to 6 hours and we will consult Neurology at this time as the patient did not have chance to visit Neurology and patient has been hav ing recurrent symptoms recurrent symptoms of right lower extremity weakness. 2. The patient has right arm weakness and has twitching clearly visible. Most likely, the patient h as a worsening disk herniation and chest pain could also be related to her disk herniation. We will do MRI of the cervical spine to look for the lesion. 3. MRI of the brain is also pending. We will do MRI of the brain to look for further growth of the meningioma as the patient was complaining of persistent headaches. 4. The patient has a history of hypertension, well controlled. We will continue to monitor at this time. 5. DVT prophylaxis, Lovenox 40 mg subcutaneous daily. I spent 70 minutes on this patient.
[2017-02-22] MEDS: Famotidine/PF 20 mg/2ml Vial SLOW IVP SCH (20:52)
[2017-02-22] MEDS: HYDROcodone/Acetaminophen 5/325 mg Tablet PO PRN (20:52)
[2017-02-22] MEDS ORDERED: Atorvastatin Calcium 40 MG TAB PO SCH (21:00)
--- NOTE | 2017-02-22 22:43 | CON ---
DATE OF CONSULTATION: 02/22/2017 REFERRING PHYSICIAN: Dr. Mac Galeas. REASON FOR CONSULTATION: Right-sided weakness. HISTORY OF PRESENT ILLNESS: Ms. Rodriguez is a pleasant 47-year-old -[place] Citizen female, who has bee n considered for evaluation of right-sided weakness. History is obtained from the patient as well as the patient's medical chart. Apparently, the patient has had multiple admissions over the past 1 ye ar for similar complaints of right-sided weakness. She reports that she has a history of "mini strok e" in 2013, at which time she had right-sided weakness. She was found to have a meningioma at that t tianna. Her symptoms had resolved. She states that over the past one year, she has been having episode s of chest pain on the left side of the chest that comes and goes. This tends to cause her to have a right-sided weakness. She had another episode this morning. She was at home and suddenly started n oticing pain in the left side of her chest. It was nonradiating. She also started noticing increasi ng weakness in her right arm and right leg, which prompted her to present to the [facility]. She denies having any numbness or tingling sensation. She denied having dysarthria or dyspha gaurav. There was no complaint of vision changes, diplopia or ptosis. She notes that her symptoms are now resolving. PAST MEDICAL HISTORY: Significant for hypertension, diverticulitis, history of TIA, history of menin gioma and cervical spondylosis. PAST SURGICAL HISTORY: Significant for colon resection. SOCIAL HISTORY: She denies smoke. She reports of smoking 2-3 cigarettes a day. She denies alcohol use or illicit drug use. FAMILY HISTORY: Noncontributory. CURRENT MEDICATIONS: Please review MAR. ALLERGIES: Include no known drug allergies. REVIEW OF SYSTEMS: As mentioned above in HPI, otherwise negative. PHYSICAL EXAMINATION: VITAL SIGNS: Blood pressure of 122/82, pulse of 89, temperature 98.7, respirations of 20, O2 sats of 98% on room air. GENERAL: Well-developed, well-nourished -[place] Citizen female, in no apparent distress. RESPIRATORY: Clear to auscultation bilaterally. CARDIOVASCULAR: Regular rate and rhythm. NEUROLOGIC: Mental status: The patient is awake, alert, oriented x3. Speech and language: Fluent speech. Cranial nerves: Pupils are 3 mm and reactive. Visual gutierrez are intact. Extraocular muscl es are intact. No nystagmus is noted. Face is symmetric. Tongue and uvula are midline. Motor exam showed normal tone and bulk with 5/5 strength in the left upper and left lower extremity. She has s trength of 4/5 right upper and right lower extremity with giveway weakness and poor effort. Sensory: Sensation is intact and symmetric. Deep tendon reflexes 1-2+ reflexes in both upper and lower extr emities. Babinski: Plantar responses flexion bilaterally. Coordination intact to [id number] r tapping bilaterally. LABORATORY DATA: Reviewed, which included CBC, coag panel, CMP, lipase, CK-MB, CPK and urinalysis, w hich is all essentially normal. IMAGING STUDIES: CT head without contrast was reviewed which showed no acute intracranial abnormalit y. CT angiogram of the head and neck with CT perfusion scan were reviewed, which showed no hemodynam ically significant stenosis or intracranial or extracranial vascular structures. CT perfusion scan s howed no perfusion mismatch. IMPRESSION: 1. Right-sided weakness. 2. Hypertension. Ms. Rodriguez is a pleasant 47-year-old -[place] Citizen male who presented with the recurrent episodes o f weakness on exam, she has some giveway weakness. I have reviewed her previous MRI done over the st one year which have been essentially unchanged. I have reviewed her most recent CT head and CTA o f the head and neck which are nonrevealing. At this time, no further neurological workup is needed. She can be started on aspirin 81 mg daily for secondary stroke prevention. No further neurological workup needed from my standpoint. The patient is okay to be discharged to home on tomorrow morning i f medically stable. Thank you for your consultation.
[2017-02-23 05:17] LABS: #Eosinphils 0.1 thou/uL (0.0-0.7); #Lymphocytes 1.6 thou/uL (1.20-3.40); #Monocytes 0.5 thou/uL (0.11-0.59); #Neutrophils 1.9 thou/uL (1.40-6.50); %Basophils 0.9 % (0.0-1.0); %Eosinophils 2.8 % (0.0-10.0); %Lymphocytes 39.6 % (21.0-51.0); %Monocytes 11.2 % (0.0-10.0); %Neutrophils 45.5 % (42.0-75.0); Hemoglobin 10.8 g/dL (12.0-16.0); Mean Corpuscular HGB CONC 32.9 g/dL (32.0-36.0); Mean Corpuscular Hemoglobin 32.9 pg (27.0-31.0); Mean Platelet Volume 6.8 fL (7.4-10.4); Platelet Count 251 thou/uL (130-400); RBC Distribution Width 12.8 % (11.5-14.5); Red Blood Cell (RBC) Count 3.29 mill/uL (4.20-5.40); White Blood Cell (WBC) Count 4.1 thou/uL (4.8-10.8)
[2017-02-23] MEDS: HYDROcodone/Acetaminophen 5/325 mg Tablet PO PRN ×2 (05:22→11:08)
[2017-02-23 05:53] LABS: Anion Gap 10 mmol/L (10-20); BUN (Urea Nitrogen) 13 mg/dL (7.0-18.7); Calc. Creatinine Clearance 120 mL/min (70-130); Calcium 8.3 mg/dL (7.8-10.44); Carbon Dioxide 25 mmol/L (22-29); Cardiac Risk 1.4 (Less than 4.5); Chloride 108 mmol/L (98-107); Cholesterol 90 mg/dl (< 200 Desired); Estimated GFR-MDRD Greater than 90; Glucose 91 mg/dL (70-105); HDL Cholesterol 63 mg/dL (>60 Neg Risk); LDL Cholesterol, Calculated 23 mg/dL; Potassium 4.5 mmol/L (3.5-5.1); Sodium 138 mmol/L (136-145); Triglycerides 20 mg/dL (Less than 150)
[2017-02-23] MEDS ORDERED: Lisinopril 5 MG TAB PO SCH (09:00)
[2017-02-23] MEDS ORDERED: Aspirin 81 mg Enteric Coated Tablet PO SCH (09:00)
[2017-02-23] MEDS ORDERED: Enoxaparin Sodium 40 MG/0.4 ML SYRINGE SC SCH (09:00)
[2017-02-23] MEDS: Famotidine/PF 20 mg/2ml Vial SLOW IVP SCH (10:09)
[2017-02-23 11:39] VITALS: BP 134/81; TEMP 98.6
--- NOTE | 2017-02-23 12:27 | DIS ---
DATE OF ADMISSION: 02/22/2017 DATE OF DISCHARGE: 02/23/2017 ADMITTING DIAGNOSES: Acute chest pain with right lower extremity and right upper extremity weakness. DISCHARGE DIAGNOSIS: Acute chest pain, noncardiac. SECONDARY DIAGNOSES: 1. Transient ischemic attack. 2. Hypertension. 3. History of diverticulitis. 4. History of falcine meningioma. CONSULTANTS INVOLVED IN THE CARE: Dr. Singer from Neurology. HISTORY OF PRESENT ILLNESS AND HOSPITAL COURSE: In brief, this is a 47-year-old young -[place] female with a known history of a meningioma, recurrent admissions in the past with right-sided nubia ns with weakness in the right extremity and lower extremity. She came in with a sudden onset of pain , which woke her up in the morning. She complains of chest pain in the left precordium, but radiatin g to the right side of the neck associated with weakness of the right lower extremity and also to the right upper extremity. Initially, it was thought that the patient could have had a TIA and Neurolog y was consulted. CT of the head and CTA was negative and the patient had a thorough evaluation with neuro checks. Neurology reassured and suggested no further workup at this point from a Neurology sta ndpoint. The patient had a recent a nuclear stress test, which was completely normal 2 weeks ago. T he patient did not have any further chest pains. Her CT was showing evidence of meningioma. Discuss ed with Neurosurgery Physician Vocational Nurse Lvn, who has seen this patient in the past along with Dr. Michi piña in 2011 and who referred the patient to Dr. Naylor, Radiation Oncology, and the patient underwent radiation at that point, but patient had lost to follow up. I discussed with the patient that she n eeds to be following up with Dr. Naylor for further plan for her meningioma where the symptoms of head ache could also be coming from that. Initially, the patient was ordered for MRI scan, which the nany ent could not go because of the claustrophobia and patient was advised to follow up with the Radiatio n Oncology for further management of the meningioma and the patient had PT and OT evaluation and she was able to walk without any difficulty, so patient was discharged home in stable condition. PHYSICAL EXAMINATION: On the day of discharge: VITAL SIGNS: Blood pressures are 134/81. Heart rate is 83, respiratory rate 16 and saturation 98%. GENERAL: The patient is moderately built and moderately nourished, does not appear to be in acute di stress. CARDIOVASCULAR: S1, S2 normal. No murmurs, rubs or gallops. LUNGS: Bilateral air entry was equal. No wheezing, no crackles. ABDOMEN: Soft and nontender. No guarding, no rebound tenderness. Bowel sounds normal. MUSCULOSKELETAL: No calf tenderness. No pedal edema. No joint tenderness. No joint swelling. SKIN: No cyanosis, no erythema, no rash, no pallor. NEUROLOGIC: Cranial nerve examination II-XII intact. No focal deficits are noted. DISCHARGE MEDICATIONS: Lisinopril 5 mg p.o. daily. The patient is prescribed aspirin 81 mg p.o. alondra ly and atorvastatin 40 mg p.o. daily. DISCHARGE INSTRUCTIONS: Continue activity as tolerated. Advised to follow up with primary care phys dee dee in 1-2 weeks. Advised to follow up with Dr. Naylor, Radiation Oncology in 1 week. Advised to tonie rose up with Neurosurgery, Dr. Lopez for her chronic cervical disk herniation. Advised the nany ent to return to the ER if the patient's symptoms got worsened from this point. I spent 35 minutes.
--- NOTE | 2017-03-03 07:39 | PQF ---
GABRIELLA CROOKSLATASHA VENTURA [id number] [address] [place] [address] [id number] CLINICAL DOCUMENTATION CLARIFICATION FORM: POST DISCHARGE Addendum to original discharge summary date: ____ Late entry note date: __ DATE: 02/22/2017 ATTN: DR. GIBBS Please exercise your independent, professional judgment in responding to the clarification form. Clinical indicators are provided on the bottom of this form for your review Please check appropriate box(s): Conflicting documentation was noted in the Medical Record, please clarify if patient is being treated/monitored for: [ x ] TIA (diagnosis #1) [ x ] Cervical Disc Herniation ( diagnosis #2) [ ] Other diagnosis [ ] Unable to determine In addition, please specify: Present on Admission (POA): [ x] Yes [ ] No [ ] Unable to determine For continuity of documentation, please document condition throughout progress notes and discharge summary. Thank You. CLINICAL INDICATORS - SIGNS / SYMPTOMS/ LABS: CT SCAN - NEGATIVE FOR ANY INTRACRANIAL HEMORRHAGE H&P - WEAKNESS RIGHT SIDE, " MOST LIKELY, THE PATIENT HAS A WORSENING DISK HERNIATION" TIA 02/22 [facility] CONSULT - RIGHT-SIDE WEAKNESS CT OF HEAD AND CTA - NEGATIVE NO FURTHER WORKUP DS - TIA RISK FACTORS: CHEST PAIN MENINGIOMA TREATMENT: NEURO CONSULT (This form is maintained as a part of the permanent medical record) 2014 [employer]. All Rights Reserved Ladonna Man, DEVANTE, [facility] [email or web address] [phone] ALEX
== END 2017-02-23 13:05 | disposition home or self-care (01) | DRG 69 ==
LOC: ERS 08:17 → 2SE 10:19
PROVIDERS: ADMIT Family Medicine; ATTEND Family Medicine
DX: G45.9 Transient cerebral ischemic attack, unspecified (principal); M50.20 Other cervical disc displacement, unspecified cervical region; R07.89 Other chest pain; D32.0 Benign neoplasm of cerebral meninges; I10 Essential (primary) hypertension; Z87.891 Personal history of nicotine dependence
CPT/HCPCS: 0042T; 36415; 70450; 70496; 70498; 71045; 80048; 80053; 80061; 81003; 82553; 83690; 83880; 84484; 85025; 85610; 85730; 93005; 93306; 96374; 99406; G8990-GO-CI; G8991-GO-CH; J1650; J2270; J2405; S0028

== ENCOUNTER 2017-05-08 11:27 | Inpatient (IN) | payer SELFPAY ==
[2017-05-08 12:03] LABS: #Basophils 0.1 thou/uL (0.0-0.2); #Eosinphils 0.1 thou/uL (0.0-0.7); #Lymphocytes 1.5 thou/uL (1.20-3.40); #Monocytes 0.5 thou/uL (0.11-0.59); #Neutrophils 3.1 thou/uL (1.40-6.50); %Eosinophils 1.5 % (0.0-10.0); %Lymphocytes 29.5 % (21.0-51.0); %Monocytes 9.1 % (0.0-10.0); %Neutrophils 58.9 % (42.0-75.0); Hemoglobin 14.3 g/dL (12.0-16.0); Mean Corpuscular HGB CONC 32.3 g/dL (32.0-36.0); Mean Corpuscular Hemoglobin 32.6 pg (27.0-31.0); Mean Platelet Volume 6.8 fL (7.4-10.4); Platelet Count 279 thou/uL (130-400); RBC Distribution Width 13.5 % (11.5-14.5); White Blood Cell (WBC) Count 5.2 thou/uL (4.8-10.8)
[2017-05-08 12:20] LABS: ALT (SGPT) 11 U/L (8-55); AST (SGOT) 12 U/L (5-34); Albumin 4.2 g/dL (3.5-5.0); Alkaline Phosphatase 57 U/L (40-150); Anion Gap 11 mmol/L (10-20); BUN (Urea Nitrogen) 10 mg/dL (7.0-18.7); Bilirubin, Total 0.3 mg/dL (0.2-1.2); CK (CPK) 104 U/L (29-168); Calc. Creatinine Clearance 0 mL/min (70-130); Carbon Dioxide 23 mmol/L (22-29); Chloride 107 mmol/L (98-107); Estimated GFR-MDRD Greater than 90; Glucose 81 mg/dL (70-105); Potassium 3.8 mmol/L (3.5-5.1); Protein, Total 7.2 g/dL (6.0-8.3); Sodium 137 mmol/L (136-145)
[2017-05-08 12:25] LABS: CKMB 0.6 ng/mL (0-6.6)
[2017-05-08 12:34] LABS: Troponin I Less than 0.010 ng/mL (< 0.028)
[2017-05-08] MEDS ORDERED: Ketorolac Tromethamine 30 MG/ML VIAL ONE (12:46)
--- NOTE | 2017-05-08 12:47 | RAD ---
PORTABLE CHEST 1 VIEW: DATE: 05/08/17. TIME: 12:10 p.m. HISTORY: Chest pain, dizziness. FINDINGS: Comparison is made with the exam dated 02/22/17. The heart size is normal. The lungs are expanded without focal areas of consolidation, pneumothorax, or pleural effusions. Evidence of old granulomatous disease is again seen. IMPRESSION: No radiographic evidence of acute cardiopulmonary process. POS: OFF
--- NOTE | 2017-05-08 13:29 | CT ---
CT CERVICAL SPINE WITHOUT CONTRAST: INDICATIONS: Right-sided neck pain and arm pain with a history of CVAs and bulging disks. COMPARISON: 04/08/2017 FINDINGS: There is a stable hemangioma within the left aspect of C5. There is multilevel disk degenerative fac et osteoarthritic change. No acute fracture or subluxation is evident. The osseous central canal ap pears relatively well preserved. The lung apices are clear. The prevertebral soft tissues appear wi thin normal limits. IMPRESSION: No acute osseous abnormality. POS: JO-ANN
--- NOTE | 2017-05-08 13:30 | CT ---
CT BRAIN WITHOUT CONTRAST: HISTORY: Right-sided weakness. FINDINGS: Comparison is made to the exams of 02/22/17 and 02/03/17. Old small infarct in the left subinsular re gions is again seen. There is a tiny focus of increased attenuation in the head of the right caudate nucleus (image 11, series 2). The ventricular size is normal and the basilar cisterns are patent. No acute transcortical infarct, midline shift, or abnormal extraaxial fluid collections are seen. Th e bony calvarium is intact. The visualized paranasal sinuses and mastoid air cells are well aerated. IMPRESSION: Findings suspicious for acute punctate right basal ganglia hemorrhage. Discussed over the telephone with ER physician, Dr. Robin Duron, at 12:53 p.m. CODE CR POS: OFF
[2017-05-08] MEDS ORDERED: Zolpidem Tartrate 5 MG TAB PO PRN (16:11)
[2017-05-08] MEDS ORDERED: Morphine 4 MG/ML Carpuject SLOW IVP PRN (16:17)
[2017-05-08] MEDS ORDERED: Acetaminophen 500 MG TAB PO PRN (16:18)
[2017-05-08] MEDS ORDERED: traMADol HCl 50 MG TAB PO PRN (16:18)
--- NOTE | 2017-05-08 17:19 | HP ---
DATE OF ADMISSION: 05/08/2017 CHIEF COMPLAINT: Right shoulder pain. HISTORY OF PRESENT ILLNESS: This is a 47-year-old female with a history of cervical radiculopathy and persistent pain in the right upper extremity. The patient states that she came into the ER because of significant pain upon elevation of her right arm. The patient had a cervical spine CT done as well as a brain CT done. The cervical spine CT showed mild disk herniation and the head CT showed findings suspicious for an acute punctate right basal ganglia hemorrhage. ER team spoke with Neurosurgery who recommended to do a repeat CT scan [address] and admission for observation purposes. At this point in time, the patient states that her only complaint is a right upper extremity pain. She denies any other associated symptoms or issues. She states that the pain is worse when she lifts her hand up and improves when she puts her hand down. Otherwise, no alleviating or aggravating factors noted. She states that the pain is sharp knife-like in nature. Pain is 10/10 upon full abduction of her shoulder. The patient states that she has had this pain on and off for the past few years; however, at this time around it started progressively getting worse last Saturday. The patient was seen and examined at bedside in the ER. All questions answered. No family at bedside. ALLERGIES: No known drug allergies. PAST MEDICAL HISTORY: Hypertension, cervical disk herniation as well as meningioma on the right side and obesity. HOME MEDICATIONS: Lisinopril. SOCIAL HISTORY: The patient states that she smokes 1-2 packs a day for the past 20+ years; however, in the last few months she has come down to half a pack a day and is working on quitting. Admits to social drinking as well. FAMILY HISTORY: Positive for stroke, diabetes, hypertension, and heart attacks. REVIEW OF SYSTEMS: Twelve-point review of systems performed. Pertinent positives in the HPI, otherwise negative. PHYSICAL EXAMINATION: VITAL SIGNS: Blood pressure 128/88, temperature 98, heart rate of 73, respiratory rate of 18, oxygen saturation is 98% on room air. LABORATORY AND X-RAY FINDINGS: CBC within normal limits. BMP within normal limits. CT scan findings as explained earlier. Chest x-ray negative. ASSESSMENT: 1. Right basal ganglia hemorrhage. 2. History of meningioma. 3. History of hypertension. 4. History of obesity. PLAN: At this point in time, we will admit the patient to the stroke unit, consult Neurosurgery as well as Neurology for management of CVA. We will place the patient on statin. We will avoid aspirin and any anticoagulation at this point in time given the hemorrhage. We will give the patient PPIs and sequential compression devices. Pain management. Targeted blood pressure of 140-160 for now systolic. Case and plan discussed with patient at length. She understands and agrees with this plan. ALEX
[2017-05-08 17:36] LABS: Cardiac Risk 1.6 (Less than 4.5)
[2017-05-08 18:09] VITALS: BMI 32.9
[2017-05-08] MEDS ORDERED: Atorvastatin Calcium 40 MG TAB PO SCH (21:00)
[2017-05-08] MEDS ORDERED: Nicotine 14 MG PATCH TD SCH (21:00)
--- NOTE | 2017-05-08 21:18 | CT ---
CT OF THE BRAIN WITHOUT CONTRAST: 05/08/17 COMPARISON: 05/08/17 HISTORY: Right sided weakness with possible small caudate hemorrhage. TECHNIQUE: Multiple contiguous axial images were obtained in a CT of the brain without contrast. FINDINGS: The previously seen hyperdensity in the region of the right caudate head is no longer appreciated. Th ere is a new hypodensity in the region of the insular cortex. This measures 9 mm in size. There is no evidence of hydrocephalus, interventricular hemorrhage, or extra-axial fluid collection. The calvarium and overlying soft tissues are unremarkable. The visualized paranasal sinuses and masto id air cells are well aerated. IMPRESSION: 1. Resolution of the previously seen hyperdensity in the right caudate head. This could represen t a small area of hemorrhage or this could have been artifactual. 2. New hypodensity in the right side of the brain which appears to be an insular cortex. An MRI of the brain without and with contrast is recommended for further evaluation. POS: JO-ANN
[2017-05-08] MEDS: Sodium Chloride 0.9% 1,000 ML IV SCH (22:25)
--- NOTE | 2017-05-09 00:51 | CON ---
DATE OF CONSULTATION: 05/08/2017 Brenton Núñez PA-C dictating for Dr. Eduardo Bryant. This is a 50-minute initial patient consult of which greater than 50% of the exam was spent counselin g and coordinating patient's care. Remainder of the exam was spent in review of patient's medical re cords and appropriate imaging studies. CHIEF COMPLAINT: Right shoulder pain and right arm weakness. HISTORY OF PRESENT ILLNESS: Ms. Rodriguez is a 47-year-old female, who presents to [facility] w ith the above complaints. According to the patient, she sustained a CVA in 2015, which she experienc ed right arm greater than right leg weakness that resolved over several weeks to months' time. She n otes, since Saturday, a progressive return of her symptoms including right arm greater than right leg w eakness. She also complains of shoulder pain since Saturday with neck pain radiating into the lateral biceps, dorsal forearm, and then with numbness and tingling into all fingers on the right hand. She has no symptoms into the left upper extremity. She states she has numbness and tingling into the rig ht lower extremity that is intermittent and has been present since Saturday. She does not use an tere tive device at home. She has not been dropping objects more frequently or noticed difficulty with fi ne motor movements, changes in her handwriting, or burning in the hands. She has also not noticed ba jing issues. She did undergo a head CT that shows a right caudate area of hemorrhage or concerning for possible hemorrhage. Review of patient's cervical spine CT does not note any acute fracture. No significant malalignment of the cervical spine. Patient is not currently on any blood thinners and does not report any trauma since Saturday. PHYSICAL EXAMINATION: The patient is awake, alert, and appropriate. She has full strength in the bi lateral lower extremities and left upper extremity with give way weakness into the right upper extrem ity, especially into the right shoulder. She does have difficulty lifting the right arm above her he ad given her shoulder pain. She has good hand intrinsic strength in the right. She has no worrisome myelopathic features on exam including negative Cuellar's bilaterally and no increased tone. GCS cu rrently is 15. IMPRESSION/DIAGNOSES: History of cerebrovascular accident, not on antiplatelet or coagulation therap y. Neck pain with right upper extremity weakness and pain. PLAN: I have discussed the patient's case and imaging with Dr. Bryant. At this time, we plan to rep eat the patient's head CT tonight at 8:00 p.m. and obtain an MRI of the brain with and without contra st and MRI of the cervical spine without contrast. We will follow up once these studies have been co mpleted. Otherwise, please call with any questions or changes in patient's neurologic exam. Highly doubtful that this punctate area of possible hemorrhage is causing the right arm weakness. Again, we will follow up once her studies have been completed. We will continue to follow the patient at this time.
[2017-05-09] MEDS: Sodium Chloride 0.9% 1,000 ML IV SCH (05:37)
[2017-05-09 06:24] LABS: #Basophils 0.1 thou/uL (0.0-0.2); #Eosinphils 0.1 thou/uL (0.0-0.7); #Monocytes 0.7 thou/uL (0.11-0.59); #Neutrophils 2.7 thou/uL (1.40-6.50); %Basophils 1.2 % (0.0-1.0); %Eosinophils 2.1 % (0.0-10.0); %Lymphocytes 36.2 % (21.0-51.0); %Monocytes 12.7 % (0.0-10.0); %Neutrophils 47.8 % (42.0-75.0); Hemoglobin 13.4 g/dL (12.0-16.0); Mean Corpuscular HGB CONC 32.5 g/dL (32.0-36.0); Mean Corpuscular Hemoglobin 32.6 pg (27.0-31.0); Mean Platelet Volume 6.8 fL (7.4-10.4); Platelet Count 275 thou/uL (130-400); RBC Distribution Width 13.6 % (11.5-14.5); Red Blood Cell (RBC) Count 4.12 mill/uL (4.20-5.40); White Blood Cell (WBC) Count 5.6 thou/uL (4.8-10.8)
[2017-05-09 06:53] LABS: Anion Gap 11 mmol/L (10-20); BUN (Urea Nitrogen) 14 mg/dL (7.0-18.7); Calc. Creatinine Clearance 114 mL/min (70-130); Calcium 8.7 mg/dL (7.8-10.44); Carbon Dioxide 24 mmol/L (22-29); Chloride 108 mmol/L (98-107); Estimated GFR-MDRD Greater than 90; Glucose 86 mg/dL (70-105); Potassium 4.3 mmol/L (3.5-5.1); Sodium 139 mmol/L (136-145)
[2017-05-09] MEDS ORDERED: Lisinopril 5 MG TAB PO SCH (09:00)
--- NOTE | 2017-05-09 11:22 | PDOC.PN ---
- Subjective Encounter Start Date: 05/09/17 Encounter Start Time: 11:20 Patient seen and examined, no new issues or complaints, all questions answered. - Objective Resuscitation Status: Resuscitation Status FULL:Full Resuscitation Vital Signs & Weight: Vital Signs (12 hours) Temp Pulse Resp BP Pulse Ox 05/09/17 08:59 98.7 F 73 16 92 L 05/09/17 07:35 98.7 F 73 16 119/78 100 05/09/17 07:00 98.6 F 69 16 126/74 97 05/09/17 03:12 98.6 F 69 16 126/74 97 Weight Weight 180 lb Result Diagrams: 05/09/17 05:49 05/09/17 05:49 Phys Exam - Physical Examination Constitutional: NAD HEENT: PERRLA, moist MMs, sclera anicteric Neck: no nodes, no JVD, supple Respiratory: no wheezing, no rales, no rhonchi Cardiovascular: RRR, no significant murmur, no rub Gastrointestinal: soft, non-tender, no distention Musculoskeletal: no edema, pulses present Neurological: non-focal, normal sensation RUE pain upon full ABduction Psychiatric: normal affect, A&O x 3 Dx/Plan (1) Basal ganglia hemorrhage Code(s): I61.0 - NONTRAUMATIC INTCRBL HEMORRHAGE IN HEMISPHERE, SUBCORTICAL Status: Acute (2) Right upper limb pain Code(s): M79.601 - PAIN IN RIGHT ARM Status: Acute (3) Cervical radiculopathy Code(s): M54.12 - RADICULOPATHY, CERVICAL REGION Status: Acute (4) Hypertension Code(s): I10 - ESSENTIAL (PRIMARY) HYPERTENSION Status: Acute (5) S/P colon resection Status: Chronic - Plan * At this point in time will await MRI results * appreciate input from neuro sx and neurology teams * BP controlled * DC plans in AM if MRI negative and bleed was artifactual * case and plan d/w patient at length, she understands and agrees with this plan
[2017-05-09] MEDS ORDERED: Lorazepam 2 MG/ML VIAL SLOW IVP SCH (14:00)
[2017-05-09 16:15] VITALS: TEMP 98
--- NOTE | 2017-05-09 16:42 | MRI ---
BRAIN MRI WITH AND WITHOUT CONTRAST: 05/09/17 COMPARISON: 09/08/16. HISTORY: Right arm weakness. TECHNIQUE: Multiplanar and multisequence MR imaging of the brain is provided with and without contrast. FINDINGS: the diffusion weighted imaging demonstrates no evidence for acute infarction. The axial gradient echo imaging demonstrates no evidence for intracranial hemorrhage. The arterial fl ow voids at axial level of skull base appear grossly unremarkable on the T2 weighted imaging. Imaged paranasal sinuses/mastoid air cells demonstrate normal signal intensity. There is an extra-axial enhancing lesion at the vertex on the left overlying the superior aspect of t he left frontoparietal region measuring 7 mm craniocaudal, 2.1 cm transverse and 1.7 cm AP, consisten t with meningioma, not appreciably changed. No intra-axial abnormal enhancement is identified. Mild prominence of Virchow-Ran spaces noted. Mul tifocal scattered foci of T2 and FLAIR hyperintensity within the white matter suggests mild stable sm all vessel disease. IMPRESSION: 1. Stable left sided meningioma near the vertex. 2. No evidence for intracranial hemorrhage or acute infarction. POS: [facility]
--- NOTE | 2017-05-09 16:53 | MRI ---
CERVICAL SPINE MRI 05/09/17 COMPARISON: 03/18/16 HISTORY: Right arm weakness. TECHNIQUE: Multiplanar and multisequence MRI imaging of the cervical spine provided without contrast. FINDINGS: The sagittal STIR imaging demonstrates no focal areas of osseous marrow edema. There is straightening of the normal cervical lordosis. C2-3: No central canal or neural foraminal stenosis. C3-4: No central canal or neural foraminal stenosis. C4-5: Mild disc desiccation and disc space narrowing. Mild facet and uncovertebral osteophyte formati on with no significant central canal or neural foraminal stenosis. C5-6: Disc space narrowing and mild disc bulge partially effaces the ventral thecal sac with mild park tral canal stenosis. No significant neural foraminal stenosis C6-7: There is disc space narrowing, disc desiccation, and disc bulge with partial effacement of the ventral thecal sac and a mild degree of central canal stenosis. There is a central disc protrusion w ith mild inferior migration, similar when compared to the prior examination. There is mild associated central canal stenosis. No significant neural foraminal stenosis. C7-T1: Mild bilateral facet hypertrophy. Mild bilateral neural foraminal stenosis, right greater than left. No significant central canal stenosis. No focal area of signal abnormality identified within the cervical cord. No focal area worrisome osseous marrow signal. IMPRESSION: Stable degenerative changes noted within the cervical spine as detailed above, most prominent at the C6-7 level. POS: Steven
[2017-05-09 18:29] VITALS: BP 133/89
--- NOTE | 2017-05-09 18:33 | PRG ---
DATE OF SERVICE: 05/09/2017 This is a 30-minute initial hospital visit note in which 30 minutes spent in review of the imaging re cord, evaluation and examination of patient, and formulation of a plan. Greater than 50% of the time was spent in counseling. CHIEF COMPLAINT: Right-sided arm pain over the last 2 weeks, question of abnormality in the brain. HISTORY OF PRESENT ILLNESS: I reviewed the notes of my colleague Brenton Rolonley and agreed with its content. Ms. 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 She came in for further evaluation. Head CT yesterday demo nstrated a punctate hyperdensity near her right caudate, this resolved on a followup head CT and ther e is a small hypodensity in the region of the right insula. MRI of the brain is ordered as there is MRI of the cervical spine. She has no complaints as I am seeing her now. OBJECTIVE: GENERAL: She is alert, appropriate and neurologically intact. IMPRESSION AND PLAN: We will await the imaging and make recommendations following, 1. Neck and right arm pain. 2. Question of intracranial abnormality.
--- NOTE | 2017-05-09 23:48 | CON ---
NEUROLOGY CONSULTATION DATE OF CONSULTATION: 05/09/2017 CONSULTING PHYSICIAN: Hospitalist Service. IMPRESSION: 1. No evidence of an intracranial hemorrhage. 2. Cervical radiculopathy on the right, likely secondary to C6-C7 disk protrusion. PLAN: 1. Suggest prednisone 20 mg per day for 10 days. 2. The patient will be discharged home. Ms. Rodriguez is a 47-year-old black female who came into the emergency room with complaints of right arm pain and tingling, it has been going on for quite some time. It waxes and wanes in severity. She h ad a CT of the brain done, which showed a punctate area of high signal suggesting a possible tiny hem orrhage adjacent to the anterior horn of the right ventricle. Followup CT showed a similar finding. MRI of the brain failed to show any evidence of a hemorrhage. She had an MRI of the cervical spine done, which showed disk bulging at the C5-C6 and C6-C7 levels. There is some foraminal stenosis at b oth levels. The patient reports a tingling primarily affects the middle three digits of the right recinos nd. She has not had any active treatment other than ibuprofen in the recent past. ALLERGIES: None. PAST MEDICAL HISTORY: Otherwise, negative. FAMILY HISTORY: Noncontributory. SOCIAL HISTORY: Unremarkable. REVIEW OF SYSTEMS: No notable weakness. PHYSICAL EXAMINATION: GENERAL: She is a somewhat overweight middle-aged woman, in no distress. VITAL SIGNS: Stable. She has been afebrile. HEENT: Unremarkable. NEUROLOGIC: She is alert and appropriate. Her speech is fluent and clear. Cranial nerves were inta ct. Motor exam showed good strength in the right arm. Sensation was intact throughout the digits. Her gait is normal. SUMMARY: The workup appears to have turned out negative. It must be a tiny area of calcium that was seen on the CAT scan. Her symptoms are consistent with a cervical radiculopathy. Neurosurgery has been consulted and can determine whether further treatment from a surgical prospective is necessary.
--- NOTE | 2017-05-10 14:37 | DIS ---
DATE OF ADMISSION: 05/08/2017 DATE OF DISCHARGE: 05/09/2017 ADMITTING DIAGNOSES: Basal ganglia hemorrhage, right upper limb pain, cervical radiculopathy, hypert ension, status post colon resection. DISCHARGE DIAGNOSES: Basal ganglia hemorrhage, artifactual; right upper limb pain, stable; cervical radiculopathy, stable; hypertension, stable; status post colon resection. HOSPITAL COURSE: The patient was a 47-year-old female admitted to hospital because of initial CT sca n of the head that showed basal ganglia hemorrhage. The patient had CT scan as well as MRI done to e valuate this, was evaluated by Internal Medicine, Neurology and Neurosurgery. The patient was found to have an artifact that not a true bleed. The patient's condition was stable upon the time of disch arge. The patient stated she wanted to go home and therefore she was discharged the day after her ad mission. DISPOSITION: Home. FOLLOWUP: With PCP and neurologist within 5-7 days. DIET: Low fat, low calorie, high fiber diet. CONDITION: Stable. ACTIVITY: As tolerated. PROGNOSIS: Good. MEDICATIONS: See MAR. Case and plan discussed with patient at length. She understands and agreed with this plan.
--- NOTE | 2017-05-10 14:51 | PDOC.EVN ---
Event Note - Event Note Event Note: DC SUMMARY #[id number]
== END 2017-05-09 19:11 | disposition home or self-care (01) | DRG 552 ==
LOC: EEVIPCON 11:27 → ERS 11:27 → 2SE 15:40
PROVIDERS: ADMIT Internal Medicine; ATTEND Internal Medicine
DX: M50.122 Cervical disc disorder at C5-C6 level with radiculopathy (principal); M48.02 Spinal stenosis, cervical region; F17.210 Nicotine dependence, cigarettes, uncomplicated; R90.89 Other abnormal findings on diagnostic imaging of central nervous system; I10 Essential (primary) hypertension; E66.9 Obesity, unspecified; Z68.32 Body mass index [BMI] 32.0-32.9, adult
CPT/HCPCS: 36415; 70450; 70553; 71045; 72125; 72141; 80048; 80053; 80061; 82553; 84443; 84484; 85025; 93005; 96374; G8978-GP-CK; G8979-GP-CK; G8980-GP-CK; G8987-GO-CI; G8988-GO-CI; G8989-GO-CI; J1885; J2060; J2270

== ENCOUNTER 2017-05-16 18:30 | Emergency (ER) | payer SELFPAY | END 2017-05-16 19:00 | disposition home or self-care (01) | LOC: ERS 18:30 | DX: F43.0 Acute stress reaction (principal); I10 Essential (primary) hypertension; F17.210 Nicotine dependence, cigarettes, uncomplicated; Z71.6 Tobacco abuse counseling; Z86.73 Personal history of transient ischemic attack (TIA), and cerebral infarction without residual deficits; Z79.899 Other long term (current) drug therapy | CPT/HCPCS: 99406 ==

== ENCOUNTER 2017-08-16 09:41 | Emergency (ER) | payer SELFPAY ==
[2017-08-16] MEDS ORDERED: Ondansetron ODT 4 MG TAB ONE (10:03)
[2017-08-16] MEDS ORDERED: Ketorolac Tromethamine 30 MG/ML VIAL ONE (10:03)
--- NOTE | 2017-08-16 10:25 | RAD ---
CHEST TWO VIEWS: History: Pain. Comparison: 05-08-17 FINDINGS: Portable upright chest demonstrates slight elongation of the aorta. Normal cardiac silhouette. The pu lmonary vessels and hilum are normal. Costophrenic angles are clear. No consolidation or mass. No pne umothorax or osseous abnormalities. IMPRESSION: No acute cardiopulmonary process. POS: [facility]
[2017-08-16 10:28] LABS: #Basophils 0.1 thou/uL (0.0-0.2); #Eosinphils 0.1 thou/uL (0.0-0.7); #Lymphocytes 1.8 thou/uL (1.20-3.40); #Monocytes 0.5 thou/uL (0.11-0.59); #Neutrophils 3.1 thou/uL (1.40-6.50); %Basophils 1.2 % (0.0-1.0); %Eosinophils 1.5 % (0.0-10.0); %Monocytes 9.6 % (0.0-10.0); %Neutrophils 55.7 % (42.0-75.0); Hemoglobin 12.8 g/dL (12.0-16.0); Mean Corpuscular HGB CONC 33.4 g/dL (32.0-36.0); Mean Corpuscular Hemoglobin 32.2 pg (27.0-31.0); Mean Corpuscular Volume 96.5 fL (78.0-98.0); Mean Platelet Volume 6.8 fL (7.4-10.4); Platelet Count 243 thou/uL (130-400); RBC Distribution Width 12.8 % (11.5-14.5); Red Blood Cell (RBC) Count 3.99 mill/uL (4.20-5.40); White Blood Cell (WBC) Count 5.5 thou/uL (4.8-10.8)
[2017-08-16 10:48] LABS: ALT (SGPT) 11 U/L (8-55); AST (SGOT) 15 U/L (5-34); Albumin 4.2 g/dL (3.5-5.0); Alkaline Phosphatase 54 U/L (40-150); Anion Gap 11 mmol/L (10-20); BUN (Urea Nitrogen) 9 mg/dL (7.0-18.7); Bilirubin, Total 0.2 mg/dL (0.2-1.2); Calc. Creatinine Clearance 0 mL/min (70-130); Calcium 8.6 mg/dL (7.8-10.44); Carbon Dioxide 24 mmol/L (22-29); Chloride 106 mmol/L (98-107); Estimated GFR-MDRD Greater than 90; Globulin 2.7 g/dL (2.4-3.5); Glucose 77 mg/dL (70-105); Protein, Total 6.9 g/dL (6.0-8.3); Sodium 137 mmol/L (136-145)
[2017-08-16 10:54] LABS: CKMB 1.2 ng/mL (0-6.6); Troponin I Less than 0.010 ng/mL (< 0.028)
== END 2017-08-16 11:45 | disposition home or self-care (01) ==
LOC: ERS 09:41
DX: R07.89 Other chest pain (principal); I10 Essential (primary) hypertension; F17.210 Nicotine dependence, cigarettes, uncomplicated; Z79.899 Other long term (current) drug therapy; Z86.73 Personal history of transient ischemic attack (TIA), and cerebral infarction without residual deficits
CPT/HCPCS: 36415; 71045; 80053; 82553; 84484; 85025; 85379; 93005; 96374; J1885; Q0162

== ENCOUNTER 2017-12-15 21:59 | Emergency (ER) | payer SELFPAY ==
[2017-12-15] MEDS ORDERED: Mag-Al 1200 mg/1200 mg/30 ML UDCUP ONE (22:18)
[2017-12-15] MEDS ORDERED: Lidocaine Viscous Sol 2% 15 ml UD Cup ONE (22:18)
[2017-12-15 22:24] LABS: #Basophils 0.1 thou/uL (0.0-0.2); #Monocytes 0.4 thou/uL (0.11-0.59); #Neutrophils 1.6 thou/uL (1.40-6.50); %Basophils 1.9 % (0.0-1.0); %Eosinophils 1.2 % (0.0-10.0); %Lymphocytes 49.5 % (21.0-51.0); %Neutrophils 38.4 % (42.0-75.0); Mean Corpuscular HGB CONC 33.4 g/dL (32.0-36.0); Mean Corpuscular Hemoglobin 32.9 pg (27.0-31.0); Mean Corpuscular Volume 98.5 fL (78.0-98.0); Mean Platelet Volume 7.2 fL (7.4-10.4); Platelet Count 287 thou/uL (130-400); RBC Distribution Width 12.7 % (11.5-14.5); Red Blood Cell (RBC) Count 3.94 mill/uL (4.20-5.40); White Blood Cell (WBC) Count 4.1 thou/uL (4.8-10.8)
--- NOTE | 2017-12-15 22:41 | RAD ---
AP VIEW CHEST: 12/15/2017 HISTORY: Chest pain. COMPARISON: 08/16/2017 FINDINGS: AP view chest demonstrates the lungs to be well aerated. No evidence of active intrathoracic disease is seen. No evidence of effusions, pneumonia, or pneumothorax is seen. IMPRESSION: Unremarkable anterior-posterior view chest. POS: [facility]
[2017-12-15 22:51] LABS: CKMB 1.1 ng/mL (0-6.6); Troponin I Less than 0.010 ng/mL (< 0.028)
== END 2017-12-15 23:55 | disposition home or self-care (01) ==
LOC: ERS 21:59
DX: R07.9 Chest pain, unspecified (principal); F17.210 Nicotine dependence, cigarettes, uncomplicated; Z86.73 Personal history of transient ischemic attack (TIA), and cerebral infarction without residual deficits
CPT/HCPCS: 36415; 71045; 82550; 82553; 84484; 85025; 93005

== ENCOUNTER 2018-09-24 07:50 | Emergency (ER) | payer SELFPAY ==
[2018-09-24] MEDS ORDERED: Ketorolac Tromethamine 30 MG/ML VIAL ONE (08:31)
[2018-09-24 08:33] LABS: #Eosinphils 0.1 thou/uL (0.0-0.7); #Monocytes 0.5 thou/uL (0.11-0.59); #Neutrophils 2.9 thou/uL (1.40-6.50); %Basophils 0.9 % (0.0-1.0); %Eosinophils 1.7 % (0.0-10.0); %Lymphocytes 36.2 % (21.0-51.0); %Monocytes 8.5 % (0.0-10.0); %Neutrophils 52.7 % (42.0-75.0); Hemoglobin 12.8 g/dL (12.0-16.0); Mean Corpuscular HGB CONC 33.6 g/dL (32.0-36.0); Mean Corpuscular Hemoglobin 32.1 pg (27.0-31.0); Mean Corpuscular Volume 95.5 fL (78.0-98.0); Mean Platelet Volume 7.1 fL (7.4-10.4); Platelet Count 289 thou/uL (130-400); RBC Distribution Width 13.6 % (11.5-14.5); White Blood Cell (WBC) Count 5.5 thou/uL (4.8-10.8)
[2018-09-24 08:56] LABS: ALT (SGPT) 13 U/L (8-55); AST (SGOT) 12 U/L (5-34); Albumin 4.3 g/dL (3.5-5.0); Alkaline Phosphatase 63 U/L (40-150); Anion Gap 10 mmol/L (10-20); BUN (Urea Nitrogen) 10 mg/dL (7.0-18.7); Bilirubin, Total 0.2 mg/dL (0.2-1.2); CK (CPK) 142 U/L (29-168); Calc. Creatinine Clearance 0 mL/min (70-130); Calcium 8.5 mg/dL (7.8-10.44); Carbon Dioxide 26 mmol/L (22-29); Chloride 104 mmol/L (98-107); Estimated GFR-MDRD Greater than 90; Globulin 2.8 g/dL (2.4-3.5); Glucose 77 mg/dL (70-105); Lipase 6 U/L (8-78); Potassium 4.1 mmol/L (3.5-5.1); Protein, Total 7.1 g/dL (6.0-8.3); Sodium 136 mmol/L (136-145)
--- NOTE | 2018-09-24 09:07 | RAD ---
Exam: Chest one view HISTORY:Chest pain Comparison: 12/15/2017 FINDINGS: Cardiac silhouette: Normal Aorta: Slightly elongated. Pulmonary vessels: Normal Costophrenic angles: Clear LUNGS: No masses or consolidation. Pneumothorax: None Osseous abnormalities: None IMPRESSION: No acute cardiopulmonary process.
[2018-09-24 12:11] LABS: Troponin I Less than 0.010 ng/mL (< 0.028)
== END 2018-09-24 12:32 | disposition home or self-care (01) ==
LOC: ERS 07:50
DX: R07.89 Other chest pain (principal); I10 Essential (primary) hypertension; Z86.73 Personal history of transient ischemic attack (TIA), and cerebral infarction without residual deficits; F17.210 Nicotine dependence, cigarettes, uncomplicated; Z79.899 Other long term (current) drug therapy
CPT/HCPCS: 36415; 71045; 80053; 82550; 83690; 84484; 85025; 85379; 93005; 96374; J1885

== ENCOUNTER 2021-09-20 13:30 | Observation (INO) | payer SELFPAY ==
[2021-09-20] MEDS ORDERED: Acetaminophen 500 MG TAB ONE (14:05)
[2021-09-20] MEDS ORDERED: Aspirin Chewable 81 MG TAB ONE (14:05)
[2021-09-20 14:14] LABS: #Lymphocytes 2.2 thou/uL (1.20-3.40); #Monocytes 0.6 thou/uL (0.11-0.59); %Basophils 0.5 % (0.0-1.0); %Eosinophils 0.3 % (0.0-10.0); %Lymphocytes 32.3 % (21.0-51.0); %Monocytes 8.3 % (0.0-10.0); %Neutrophils 58.7 % (42.0-75.0); Hemoglobin 11.8 g/dL (12.0-16.0); Mean Corpuscular HGB CONC 32.9 g/dL (32.0-36.0); Mean Corpuscular Volume 97.2 fL (78.0-98.0); Mean Platelet Volume 7.1 fL (7.4-10.4); Platelet Count 288 thou/uL (130-400); RBC Distribution Width 13.1 % (11.5-14.5); Red Blood Cell (RBC) Count 3.68 mill/uL (4.20-5.40); White Blood Cell (WBC) Count 6.8 thou/uL (4.8-10.8)
[2021-09-20 14:37] LABS: ALT (SGPT) 15 U/L (8-55); AST (SGOT) 16 U/L (5-34); Albumin 4.4 g/dL (3.5-5.0); Alkaline Phosphatase 65 U/L (40-110); Anion Gap 10 mmol/L (10-20); BUN (Urea Nitrogen) 9 mg/dL (7.0-18.7); Bilirubin, Total 0.6 mg/dL (0.2-1.2); Calc. Creatinine Clearance 0 mL/min (70-130); Calcium 8.9 mg/dL (7.8-10.44); Carbon Dioxide 27 mmol/L (22-29); Chloride 105 mmol/L (98-107); Estimated GFR 93; Glucose 76 mg/dL (70-105); Potassium 3.6 mmol/L (3.5-5.1); Protein, Total 7.4 g/dL (6.0-8.3); Sodium 138 mmol/L (136-145)
[2021-09-20] MEDS ORDERED: Nitroglycerin 2% Ointment 1 INCH/1 GM Packet ONE (16:16)
[2021-09-20] MEDS ORDERED: Acetaminophen 325 MG TAB PO PRN (16:57)
[2021-09-20] MEDS ORDERED: Enoxaparin Sodium 40 MG/0.4 ML SYRINGE SC SCH (17:00)
[2021-09-20 17:08] LABS: Troponin I Less than 0.010 ng/mL (< 0.028)
[2021-09-20 20:17] LABS: Troponin I Less than 0.010 ng/mL (< 0.028)
[2021-09-20] MEDS ORDERED: traZODone HCl 50 MG TAB PO SCH (21:00)
[2021-09-20 23:59] VITALS: BMI 30.9
[2021-09-21 05:32] LABS: #Eosinphils 0.1 thou/uL (0.0-0.7); #Lymphocytes 2.1 thou/uL (1.20-3.40); #Monocytes 0.5 thou/uL (0.11-0.59); #Neutrophils 1.6 thou/uL (1.40-6.50); %Basophils 0.8 % (0.0-1.0); %Eosinophils 1.9 % (0.0-10.0); %Lymphocytes 49.5 % (21.0-51.0); %Monocytes 10.8 % (0.0-10.0); Hemoglobin 11.5 g/dL (12.0-16.0); Mean Corpuscular HGB CONC 32.3 g/dL (32.0-36.0); Mean Corpuscular Hemoglobin 31.7 pg (27.0-31.0); Mean Corpuscular Volume 98.2 fL (78.0-98.0); Mean Platelet Volume 7.1 fL (7.4-10.4); Platelet Count 268 thou/uL (130-400); RBC Distribution Width 13.1 % (11.5-14.5); Red Blood Cell (RBC) Count 3.62 mill/uL (4.20-5.40); White Blood Cell (WBC) Count 4.2 thou/uL (4.8-10.8)
[2021-09-21 05:51] LABS: ALT (SGPT) 12 U/L (8-55); AST (SGOT) 14 U/L (5-34); Albumin 3.8 g/dL (3.5-5.0); Alkaline Phosphatase 63 U/L (40-110); Anion Gap 11 mmol/L (10-20); BUN (Urea Nitrogen) 11 mg/dL (7.0-18.7); Bilirubin, Total 0.3 mg/dL (0.2-1.2); Calc. Creatinine Clearance 103 mL/min (70-130); Calcium 8.5 mg/dL (7.8-10.44); Carbon Dioxide 27 mmol/L (22-29); Cardiac Risk 1.4 (Less than 4.5); Chloride 106 mmol/L (98-107); Cholesterol 109 mg/dl (< 200 Desired); Estimated GFR 90; Globulin 2.5 g/dL (2.4-3.5); Glucose 85 mg/dL (70-105); HDL Cholesterol 80 mg/dL (>60 Neg Risk); LDL Cholesterol, Calculated 24 mg/dL; Protein, Total 6.3 g/dL (6.0-8.3); Sodium 140 mmol/L (136-145); Triglycerides 25 mg/dL (Less than 150)
[2021-09-21] MEDS ORDERED: ADENOSINE 60 MG/20 ML VIAL ONE (08:31)
[2021-09-21] MEDS ORDERED: Aspirin Chewable 81 MG TAB PO SCH (09:00)
[2021-09-21] MEDS ORDERED: Lisinopril 10 MG TAB PO SCH (09:00)
[2021-09-21 09:21] VITALS: TEMP 98.1
[2021-09-21 15:51] VITALS: BP 121/75
== END 2021-09-21 18:11 | disposition home or self-care (01) ==
LOC: ERS 13:30 → EEVIPCON 13:30 → 2SW 16:57
PROVIDERS: ADMIT Internal Medicine Geriatric Medicine; ATTEND Internal Medicine Geriatric Medicine
DX: R07.81 Pleurodynia (principal); I10 Essential (primary) hypertension; I08.1 Rheumatic disorders of both mitral and tricuspid valves; Z86.73 Personal history of transient ischemic attack (TIA), and cerebral infarction without residual deficits; Z79.899 Other long term (current) drug therapy; Z88.0 Allergy status to penicillin; Z20.822 Contact with and (suspected) exposure to COVID-19
CPT/HCPCS: 36415; 71045; 78452; 80053; 80061; 83880; 84484; 85025; 93005; 93017; 93306; 96372; A9500; G0378; J0153; J1650; U0003; U0005

== ENCOUNTER 2022-04-12 14:41 | Emergency (ER) | payer OTHER, SELFPAY | END 2022-04-12 16:16 | disposition home or self-care (01) | LOC: ERS 14:41 | DX: M26.601 Right temporomandibular joint disorder, unspecified (principal); I10 Essential (primary) hypertension; F17.210 Nicotine dependence, cigarettes, uncomplicated | CPT/HCPCS: 99283 ==

== ENCOUNTER 2023-02-09 07:42 | Emergency (ER) | payer SELFPAY ==
[2023-02-09 08:42] LABS: Bilirubin Negative (Negative); Blood, Urine Negative (Negative); CAUTI Indications for Culture Pelvic or flank pain; Clarity Turbid (Clear); Glucose, Urine (Dipstick) Normal (Negative); Ketone, Urine Trace mg/dL (Negative); Leukocyte Negative Leu/uL (Negative); Nitrite Negative (Negative); Protein, Urine (Dipstick) 30 mg/dL (Neg-Trace); Specific Gravity, Urine 1.031 (1.002-1.036); pH, Urine 5.5 (5.0-9.0)
[2023-02-09 08:43] LABS: Bacteria/HPF 1+ HPF (None Seen)
[2023-02-09 08:44] LABS: Urine Culture Reflex No No
[2023-02-09 09:13] LABS: #Eosinphils 0.1 thou/uL (0.0-0.7); #Monocytes 0.5 thou/uL (0.11-0.59); #Neutrophils 2.8 thou/uL (1.40-6.50); %Basophils 0.4 % (0.0-1.0); %Lymphocytes 29.6 % (21.0-51.0); %Monocytes 9.9 % (0.0-10.0); %Neutrophils 58.9 % (42.0-75.0); Hematocrit 42.1 % (36.0-47.0); Hemoglobin 13.8 g/dL (12.0-16.0); Mean Corpuscular HGB CONC 32.8 g/dL (32.0-36.0); Mean Corpuscular Hemoglobin 32.2 pg (27.0-31.0); Mean Corpuscular Volume 98.4 fl (78.0-98.0); Mean Platelet Volume 9.3 fL (7.4-10.4); Platelet Count 360 10x3/uL (130-400); RBC Distribution Width 15.4 % (11.5-14.5); Red Blood Cell (RBC) Count 4.28 mill/uL (4.20-5.40); White Blood Cell (WBC) Count 4.8 10x3/uL (4.8-10.8)
[2023-02-09] MEDS ORDERED: Ketorolac Tromethamine 30 MG (1 mL) VIAL ONE (09:19)
[2023-02-09 09:49] LABS: ALT (SGPT) 14 U/L (8-55); AST (SGOT) 15 U/L (5-34); Alkaline Phosphatase 70 U/L (40-110); Anion Gap 12 mmol/L (10-20); BUN (Urea Nitrogen) 11 mg/dL (7.0-18.7); Bilirubin, Total 0.4 mg/dL (0.2-1.2); Calc. Creatinine Clearance 0 mL/min (70-130); Calcium 8.5 mg/dL (7.8-10.44); Carbon Dioxide 26 mmol/L (22-29); Chloride 104 mmol/L (98-107); Estimated GFR 86; Globulin 3.3 g/dL (2.4-3.5); Glucose 81 mg/dL (70-105); Potassium 4.1 mmol/L (3.5-5.1); Protein, Total 7.3 g/dL (6.0-8.3); Sodium 138 mmol/L (136-145)
== END 2023-02-09 10:37 | disposition home or self-care (01) ==
LOC: ERS 07:42
DX: M54.50 Low back pain, unspecified (principal); I10 Essential (primary) hypertension; F17.210 Nicotine dependence, cigarettes, uncomplicated; Z79.82 Long term (current) use of aspirin; Z86.73 Personal history of transient ischemic attack (TIA), and cerebral infarction without residual deficits; Z79.899 Other long term (current) drug therapy
CPT/HCPCS: 36415; 74176; 80053; 81001; 85025; 96372; J1885

== ENCOUNTER 2023-03-30 10:44 | Emergency (ER) | payer SELFPAY ==
[2023-03-30 11:36] LABS: #Monocytes 0.5 thou/uL (0.11-0.59); #Neutrophils 4.9 thou/uL (1.40-6.50); %Basophils 0.3 % (0.0-1.0); %Eosinophils 0.5 % (0.0-10.0); %Lymphocytes 27.8 % (21.0-51.0); %Monocytes 6.9 % (0.0-10.0); %Neutrophils 64.2 % (42.0-75.0); Hematocrit 37.5 % (36.0-47.0); Hemoglobin 12.8 g/dL (12.0-16.0); Mean Corpuscular HGB CONC 34.1 g/dL (32.0-36.0); Mean Corpuscular Hemoglobin 32.4 pg (27.0-31.0); Mean Corpuscular Volume 94.9 fl (78.0-98.0); Mean Platelet Volume 9.3 fL (7.4-10.4); Platelet Count 270 10x3/uL (130-400); RBC Distribution Width 14.4 % (11.5-14.5); Red Blood Cell (RBC) Count 3.95 mill/uL (4.20-5.40); White Blood Cell (WBC) Count 7.7 10x3/uL (4.8-10.8)
[2023-03-30 12:01] LABS: ALT (SGPT) 16 U/L (8-55); AST (SGOT) 17 U/L (5-34); Albumin 4.6 g/dL (3.5-5.0); Alkaline Phosphatase 61 U/L (40-110); Anion Gap 15 mmol/L (10-20); BUN (Urea Nitrogen) 11 mg/dL (9.8-20.1); Bilirubin, Total 0.3 mg/dL (0.2-1.2); Calc. Creatinine Clearance 0 mL/min (70-130); Calcium 9.1 mg/dL (7.8-10.44); Carbon Dioxide 23 mmol/L (22-29); Chloride 102 mmol/L (98-107); Estimated GFR 105; Globulin 3.2 g/dL (2.4-3.5); Glucose 55 mg/dL (70-105); Lipase 5 U/L (8-78); Potassium 3.7 mmol/L (3.5-5.1); Protein, Total 7.8 g/dL (6.0-8.3); Sodium 136 mmol/L (136-145)
[2023-03-30 12:05] LABS: Troponin I 0.016 ng/mL (< 0.028)
[2023-03-30 12:07] LABS: Prothrombin Time 12.8 sec (12.0-14.7)
[2023-03-30 12:08] LABS: PTT 31.5 sec (22.9-36.1)
[2023-03-30] MEDS ORDERED: Acetaminophen 500 MG TAB ONE (12:27)
[2023-03-30 13:17] LABS: SARS-CoV-2 NAA Rapid Test Not Detected (NotDetected)
[2023-03-30 14:24] LABS: Troponin I Less than 0.010 ng/mL (< 0.028)
== END 2023-03-30 14:24 | disposition home or self-care (01) ==
LOC: ERS 10:44
DX: B34.9 Viral infection, unspecified (principal); R07.9 Chest pain, unspecified; I10 Essential (primary) hypertension; F17.210 Nicotine dependence, cigarettes, uncomplicated; Z86.73 Personal history of transient ischemic attack (TIA), and cerebral infarction without residual deficits; Z79.82 Long term (current) use of aspirin; Z79.899 Other long term (current) drug therapy
CPT/HCPCS: 36415; 71045; 80053; 83690; 84484; 85025; 85610; 85730; 93005

== ENCOUNTER 2023-04-20 09:49 | Emergency (ER) | payer BC ==
[2023-04-20 10:13] LABS: #Eosinphils 0.1 thou/uL (0.0-0.7); #Monocytes 0.4 thou/uL (0.11-0.59); #Neutrophils 1.4 thou/uL (1.40-6.50); %Basophils 0.5 % (0.0-1.0); %Eosinophils 2.3 % (0.0-10.0); %Lymphocytes 52.1 % (21.0-51.0); %Monocytes 10.6 % (0.0-10.0); %Neutrophils 34.2 % (42.0-75.0); Hemoglobin 12.6 g/dL (12.0-16.0); Mean Corpuscular HGB CONC 34.1 g/dL (32.0-36.0); Mean Corpuscular Hemoglobin 32.3 pg (27.0-31.0); Mean Corpuscular Volume 94.9 fl (78.0-98.0); Mean Platelet Volume 9.2 fL (7.4-10.4); Platelet Count 288 10x3/uL (130-400); RBC Distribution Width 14.1 % (11.5-14.5)
[2023-04-20] MEDS ORDERED: Ketorolac Tromethamine 30 MG (1 mL) VIAL ONE (10:29)
[2023-04-20] MEDS ORDERED: Orphenadrine Citrate 60 MG/2 ML VIAL ONE (10:29)
[2023-04-20 10:33] LABS: ALT (SGPT) 14 U/L (8-55); AST (SGOT) 15 U/L (5-34); Albumin 4.7 g/dL (3.5-5.0); Alkaline Phosphatase 66 U/L (40-110); Anion Gap 12 mmol/L (10-20); BUN (Urea Nitrogen) 5 mg/dL (9.8-20.1); Bilirubin, Total 0.2 mg/dL (0.2-1.2); Calc. Creatinine Clearance 0 mL/min (70-130); Carbon Dioxide 27 mmol/L (22-29); Chloride 106 mmol/L (98-107); Estimated GFR 93; Glucose 80 mg/dL (70-105); Magnesium 2.2 mg/dL (1.6-2.6); Potassium 4.2 mmol/L (3.5-5.1); Protein, Total 7.7 g/dL (6.0-8.3); Sodium 141 mmol/L (136-145)
[2023-04-20] MEDS ORDERED: Lidocaine 4% Patch TD SCH (10:45)
[2023-04-20 12:55] LABS: Troponin I Less than 0.010 ng/mL (< 0.028)
[2023-04-20] MEDS ORDERED: Transdermal Patch Removal TOP SCH (23:00)
== END 2023-04-20 13:16 | disposition home or self-care (01) ==
LOC: ERS 09:49
DX: M94.0 Chondrocostal junction syndrome [Tietze] (principal); M51.36 Other intervertebral disc degeneration, lumbar region; I10 Essential (primary) hypertension; F17.210 Nicotine dependence, cigarettes, uncomplicated; Z79.899 Other long term (current) drug therapy
CPT/HCPCS: 36415; 71045; 72131; 80053; 83735; 83880; 84484; 85025; 85379; 93005; 96372; 96374; J1885; J2360

== ENCOUNTER 2023-04-24 11:14 | Emergency (ER) | payer BC ==
[2023-04-24] MEDS ORDERED: Morphine 4 MG/ML VIAL ONE (12:11)
[2023-04-24] MEDS ORDERED: Diazepam 5 MG TAB ONE (12:12)
== END 2023-04-24 12:53 | disposition home or self-care (01) ==
LOC: ERS 11:14
DX: M54.50 Low back pain, unspecified (principal); I10 Essential (primary) hypertension; F17.210 Nicotine dependence, cigarettes, uncomplicated
CPT/HCPCS: 96372; 99283; J2270